=== PATIENT | female | born 1930 | race Asian ===

== ENCOUNTER 2017-02-18 11:32 | Inpatient (IN) | payer MEDICARE, MEDICAID ==
[~2017-02-18] VITALS: Ht 157.5 cm; Wt 59.0 kg
[2017-02-18 13:06] LABS: MEAN CORPUSCULAR HEMOGLOBIN 33.5 PG (27.0-31.0); MEAN CORPUSCULAR VOLUME 105 FL (80-99); MEAN PLATELET VOLUME 4.9 FL (6.5-10.1); PLATELET COUNT 312 K/UL (150-450); RED BLOOD COUNT 3.24 M/UL (4.20-5.40); RED CELL DISTRIBUTION WIDTH 12.1 % (11.6-14.8); WHITE BLOOD COUNT 12.7 K/UL (4.8-10.8)
[2017-02-18] MEDS ORDERED: Bacitracin Oint UD TOPIC ONE (13:15)
[2017-02-18] MEDS ORDERED: Tetanus/Diptheria/Pertussis Vaccine 0.5ml Syr IM ONE (13:15)
[2017-02-18 13:21] LABS: ACETAMINOPHEN < 10 ug/mL (10-30); ALANINE AMINOTRANSFERASE 31 U/L (3-33); ALBUMIN/GLOBULIN RATIO 0.8 (1.0-2.7); ALCOHOL < 10 mg/dL; ANION GAP 11 (5-15); ASPARTATE AMINO TRANSFERASE 39 U/L (5-40); CALCIUM 9.2 mg/dL (8.6-10.2); CARBON DIOXIDE 26 mEQ/L (20-30); CHLORIDE 103 mEQ/L (98-107); CREATININE 0.8 mg/dL (0.5-0.9); HEMOLYSIS 0; POTASSIUM 3.7 mEQ/L (3.4-4.9); SODIUM 140 mEQ/L (135-145); TOTAL PROTEIN 6.9 g/dL (6.6-8.7)
[2017-02-18 13:42] LABS: BAND NEUTROPHILS % (MANUAL) 2 % (0-8); BASOPHILS % (MANUAL) 0 % (0-2); EOSINOPHILS % (MANUAL) 0 % (0-3); LYMPHOCYTES % (MANUAL) 4 % (20-45); NEUTROPHILS % (MANUAL) 89 % (45-75); PLATELET ESTIMATE ADEQUATE; PLATELET MORPHOLOGY NORMAL; TOTAL CELLS COUNTED 100
[2017-02-18 13:45] LABS: HYPOCHROMASIA 1+; MACROCYTES 1+
--- NOTE | 2017-02-18 13:56 | Emergency Room Report ---
History of Present Illness General Chief Complaint: Behavioral Complaint Source: EMS (Adriana Castellano) Present Illness HPI 86-year-old female presents to the emergency department brought by son for rapid worsening of her symptoms of dementia, depression, and fall this a.m. sustaining abrasions of the chin, left elbow, and new onset 8/10 in severity left hip pain status post fall. Son states that intermittently she will have confusion and week that with 2 in the morning however over the course of the last few days she has had multiple episodes of confusion and impression in addition to scratching family members and refusing help. She also has a history of hypertension hyperlipidemia denies fevers or chills. Patient is a poor historian therefore history of present illness and RLS is limited. Son does not believe the patient is on a blood thinning medication. (Adriana Castellano) Allergies: Coded Allergies: No Known Allergies (Unverified , 02/18/17) Patient History Past Medical History: see triage record Past Surgical History: none Pertinent Family History: none Now: No Reviewed Nursing Documentation: PMH: Agreed, PSxH: Agreed (Adriana Castellano) Nursing Documentation-PMH Past Medical History: No History, Except For Hx Hypertension: Yes History Of Psychiatric Problem: Yes (Adriana Castellano) Review of Systems All Other Systems: negative except mentioned in HPI (Adriana Castellano) Physical Exam Vital Signs Date Time Temp Pulse Resp B/P (MAP) Pulse Ox O2 Delivery O2 Flow Rate FiO2 02/18/17 11:21 98.4 82 14 134/78 99 Room Air Sp02 EP Interpretation: reviewed, normal General Appearance: no apparent distress, alert, GCS 15, non-toxic, thin Head: normocephalic, other - abrasion and ttp to the chin Eyes: bilateral eye normal inspection, bilateral eye PERRL, bilateral eye EOMI ENT: hearing grossly normal, normal pharynx, moist mucus membranes, other - superficial abrasion to the upper lip, no lac, no lesions to the buccal/oral mucosa otherwise Neck: full range of motion, supple/symm/no masses Respiratory: chest non-tender, lungs clear, normal breath sounds, speaking full sentences Cardiovascular #1: regular rate, rhythm, no edema, normal capillary refill Gastrointestinal: normal bowel sounds, non tender, soft, no guarding, no rebound Rectal: deferred Genitourinary: normal inspection Musculoskeletal: back normal, normal range of motion, tender - TTP to the lateral left hip, contusion noted, no erythema or increased temperature, no shortening of the affected leg, good distal pulses, no ttp to the left elbow FROM noted Neurologic: alert, oriented x3 - A & O x 2 : person and place- limited exam due to pt. attention span and cooperation, responsive, motor strength/tone normal, sensory intact, speech normal, other - no facial droop Skin: normal color, no rash, warm/dry, well hydrated, other - lateral left hip contusion, abrasions - chin, and left elbow (Adriana Castellano.ATrupti) Medical Decision Making PA Attestation Dr. Sol is my supervising Physician whom patient management has been discussed with. (Adriana Castellano.A.) Medicare Attestation I, Lionel Sol MD hereby attest that this medical record accurately reflects signatures/notations that I made in my capacity as MD when I treated/ diagnosed the above listed Medicare beneficiary. I attest that this information is true, accurate and complete to the best of my knowledge. I understand that any falsification, omission, or concealment of material fact may subject me to administrative, civil, or criminal liability. This patient warrants hospital admission for extreme of age and has a condition that cannot be treated as outpatient. (Lionel Sol M.D.) Diagnostic Impression: Primary Impression: Fracture of left inferior pubic ramus Qualified Codes: S32.592A - Other specified fracture of left pubis, initial encounter for closed fracture Additional Impressions: Fracture of left superior pubic ramus Qualified Codes: S32.512A - Fracture of superior rim of left pubis, initial encounter for closed fracture History of dementia UTI (urinary tract infection) Qualified Codes: N30.01 - Acute cystitis with hematuria Intractable pain ER Course 86-year-old female presents to the emergency department brought by son for rapid worsening of her symptoms of dementia, depression, and fall this a.m. sustaining abrasions of the chin, left elbow, and new onset 8/10 in severity left hip pain status post fall. Son states that intermittently she will have confusion and week that with 2 in the morning however over the course of the last few days she has had multiple episodes of confusion and impression in addition to scratching family members and refusing help. She also has a history of hypertension hyperlipidemia denies fevers or chills. Patient is a poor historian therefore history of present illness and RLS is limited. Son does not believe the patient is on a blood thinning medication. Ddx considered but are not limited to NE, pneumonia, contusion, costochondritis , PE, ACS, Shoulder strain, Chest wall contusion. aortic dissection. Vital signs: are WNL, pt. is afebrile H&PE are most consistent with Fall with acute worsening of dementia symptoms with aggression. ORDERS: -CT Head NO contrast: No evidence of acute fracture, hemorrhage, or intracranial process- chronic atrophy, and old lacunar infarcts Per: Official radiology report - CT Facial Bones No Contrast: no evidence of acute fractures, previous cataract surgery otherwise no acute pathology per official radiology report. - CT Pelvis No Contrast: * Left superior and inferior pubic Rami Fractures per official radiology report. -CBC: elevated WBC's 12.7, and anemia -CMP: WNL - UDS: negative -Salicylates and Acetaminophen: WNL/negative -UA: elevated WBC's , Leukocytes, RBC's, and few bacteria indicating UTI ED INTERVENTIONS: - Tdap vaccination administered - PT. placed on cardiac monitoring. -Tylenol PO -Abrasions are cleaned and bacitracin and sterile dressing is applied. - Keflex PO DISPOSITION: at this time pt. will be admitted to Dr. Carey for UTI, intractable pain. Dr. Carey agreed to admit the pt. and to continue pt. care management. Labs Test 02/18/17 12:50 02/18/17 14:00 White Blood Count 12.7 K/UL (4.8-10.8) Red Blood Count 3.24 M/UL (4.20-5.40) Hemoglobin 10.9 G/DL (12.0-16.0) Hematocrit 33.9 % (37.0-47.0) Mean Corpuscular Volume 105 FL (80-99) Mean Corpuscular Hemoglobin 33.5 PG (27.0-31.0) Mean Corpuscular Hemoglobin Concent 32.0 G/DL (32.0-36.0) Red Cell Distribution Width 12.1 % (11.6-14.8) Platelet Count 312 K/UL (150-450) Mean Platelet Volume 4.9 FL (6.5-10.1) Neutrophils (%) (Auto) % (45.0-75.0) Lymphocytes (%) (Auto) % (20.0-45.0) Monocytes (%) (Auto) % (1.0-10.0) Eosinophils (%) (Auto) % (0.0-3.0) Basophils (%) (Auto) % (0.0-2.0) Differential Total Cells Counted 100 Neutrophils % (Manual) 89 % (45-75) Lymphocytes % (Manual) 4 % (20-45) Monocytes % (Manual) 5 % (1-10) Eosinophils % (Manual) 0 % (0-3) Basophils % (Manual) 0 % (0-2) Band Neutrophils 2 % (0-8) Platelet Estimate Adequate Platelet Morphology Normal Hypochromasia 1+ Macrocytosis 1+ Sodium Level 140 mEQ/L (135-145) Potassium Level 3.7 mEQ/L (3.4-4.9) Chloride Level 103 mEQ/L (98-107) Carbon Dioxide Level 26 mEQ/L (20-30) Anion Gap 11 (5-15) Blood Urea Nitrogen 30 mg/dL (7-23) Creatinine 0.8 mg/dL (0.5-0.9) Estimat Glomerular Filtration Rate mL/min (>60) Glucose Level 85 mg/dL (74-106) Calcium Level 9.2 mg/dL (8.6-10.2) Total Bilirubin 0.4 mg/dL (0.0-1.2) Aspartate Amino Transf (AST/SGOT) 39 U/L (5-40) Alanine Aminotransferase (ALT/SGPT) 31 U/L (3-33) Alkaline Phosphatase 47 U/L (35-104) Total Protein 6.9 g/dL (6.6-8.7) Albumin 3.2 g/dL (3.5-5.2) Globulin 3.7 g/dL Albumin/Globulin Ratio 0.8 (1.0-2.7) Salicylates Level < 1 mg/dL (10-30) Acetaminophen Level < 10 ug/mL (10-30) Serum Alcohol < 10 mg/dL Urine Color Yellow Urine Appearance Clear Urine pH 6.5 (4.5-8.0) Urine Specific [place] 1.015 (1.005-1.035) Urine Protein 2+ (NEGATIVE) Urine Glucose (UA) Negative (NEGATIVE) Urine Ketones Negative (NEGATIVE) Urine Occult Blood Negative (NEGATIVE) Urine Nitrite Negative (NEGATIVE) Urine Bilirubin Negative (NEGATIVE) Urine Urobilinogen Normal MG/DL (0.0-1.0) Urine Leukocyte Esterase 1+ (NEGATIVE) Urine RBC 2-4 /HPF (0 - 2) Urine WBC 5-10 /HPF (0 - 2) Urine Squamous Epithelial Cells Occasional /LPF Urine Bacteria Few /HPF (NONE) Urine Hyaline Casts 2-4 /LPF (NONE) Urine Granular Casts 0-2 /LPF (NONE) Urine Opiates Screen Negative (NEGATIVE) Urine Barbiturates Screen Negative (NEGATIVE) Phencyclidine (PCP) Screen Negative (NEGATIVE) Urine Amphetamines Screen Negative (NEGATIVE) Urine Benzodiazepines Screen Negative (NEGATIVE) Urine Cocaine Screen Negative (NEGATIVE) Urine Marijuana (THC) Screen Negative (NEGATIVE) (Adriana Castellano) Last Vital Signs Date Time Temp Pulse Resp B/P (MAP) Pulse Ox O2 Delivery O2 Flow Rate FiO2 02/18/17 11:21 98.4 82 14 134/78 99 Room Air (Adriana Castellano) Disposition: ADMITTED INPATIENT Condition: Serious Referrals: NOT CHOSEN JAMES/,REFERRING (PCP) Adriana Castellano Feb 18, 2017 13:56 Lionel Sol M.D. Feb 19, 2017 19:02
--- NOTE | 2017-02-18 14:00 | Diagnostic Imaging Report ---
Indications: Altered mental status, trauma Technique: Spiral acquisitions obtained through the brain. Angled axial and coronal 5 x 5 mm slices were reconstructed. Total dose length product 1420 mGycm. CTDI vol(s) 70 mGy. Dose reduction achieved using automated exposure control Comparison: None Findings: There is age-related enlargement of the ventricles and extra-axial CSF spaces. There is periventricular deep white matter chronic ischemic change. There are old bilateral basal ganglia lacunar infarcts. No acute intracranial hemorrhage or edema, mass effect, or midline shift. The calvarium is intact. There is mild bilateral ethmoid sinus mucosal disease. There is evidence of prior left optic globe scleral banding. There is evidence of prior right optic globe cataract surgery. Impression: Chronic and age-related changes. Negative for acute intracranial bleed or mass effect Evidence of prior bilateral ocular surgery Minimal sinus disease The CT scanner at [facility] is accredited by the [employer] and the scans are performed using protocols designed to limit radiation exposure to as low as reasonably achievable to attain images of sufficient resolution adequate for diagnostic evaluation.
--- NOTE | 2017-02-18 14:05 | Diagnostic Imaging Report ---
Indication: PAIN, trauma, left thigh vein Technique: Noncontrast spiral acquisitions obtained through the pelvis. Multiplanar reconstructions generated. Total dose length product 253 mGycm. CTDIvol(s) 9 mGy. Dose reduction achieved using automated exposure control Comparison: None Findings: There is a fracture of the left inferior pubic ramus which is displaced by about one bone width, slightly angulated. There is a comminuted but nondisplaced fracture of the left medial pubic ramus. No femoral fracture demonstrated. No other fracture demonstrated. There are degenerative changes of the lumbosacral junction. No significant soft tissue contusion demonstrated. The bladder is somewhat distended. The distal abdominal the bones appear osteoporotic aorta is somewhat ectatic. Impression: Positive for left inferior and superior pubic rami fractures. No evidence of femoral fracture or other acute bony trauma Osteoporosis The CT scanner at [facility] is accredited by the [employer] and the scans are performed using protocols designed to limit radiation exposure to as low as reasonably achievable to attain images of sufficient resolution adequate for diagnostic evaluation.
--- NOTE | 2017-02-18 14:11 | Diagnostic Imaging Report ---
Indications: Pain, status post fall Technique: Spiral images obtained through the facial bones. No IV contrast utilized. Multiplanar reconstructions were generated.Total dose length product 602 mGycm. CTDIvol(s) 28mGy. Dose reduction achieved using automated exposure control Comparison: None Findings: No acute fractures. No dislocations. There is extensive periosteal thickening of the bilateral maxillary sinuses, as well as mucosal thickening. There is also bilateral ethmoid and frontal sinus disease. There is a large area of osteolysis of the posterior left maxillary alveolar ridge. The optic globes demonstrate a scleral band on the left as well as evidence of cataract surgery bilaterally. 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
[2017-02-18 14:21] LABS: APPEARANCE,URINE CLEAR; KETONES,URINE NEGATIVE (NEGATIVE); LEUKOCYTE ESTERASE ,URINE 1+ (NEGATIVE); NITRITE,URINE NEGATIVE (NEGATIVE); PH,URINE 6.5 (4.5-8.0); PROTEIN,URINE 2+ (NEGATIVE); UROBILINOGEN,URINE NORMAL MG/DL (0.0-1.0)
[2017-02-18] MEDS ORDERED: Acetaminophen 500mg (ES) tab ORAL ONE (14:30)
[2017-02-18 14:45] LABS: BACTERIA,URINE FEW /HPF; GRANULAR CASTS,URINE 0-2 /LPF; SQUAMOUS EPITHELIAL CELL,UR OCCASIONAL /LPF (NONE/OCC)
[2017-02-18 14:48] VITALS: BP 139/70
[2017-02-18] MEDS ORDERED: DONEPEZIL HCL10 M2 ORAL ×2 (14:57→14:59)
[2017-02-18] MEDS ORDERED: TRIAMTERENE-HC1 EAC7 ORAL (14:58)
[2017-02-18] MEDS ORDERED: Zolpidem 5mg tab ORAL PRN (15:00)
[2017-02-18] MEDS ORDERED: Morphine Sulfate 2mg/ml Inj IVP PRN (15:00)
[2017-02-18] MEDS ORDERED: Morphine Sulfate 4mg/ml Inj IVP PRN (15:00)
[2017-02-18] MEDS ORDERED: LORazepam Inj 2mg/ml 1ml IV PRN (15:00)
[2017-02-18] MEDS ORDERED: Miralax 17gm pkt ORAL PRN (15:00)
[2017-02-18] MEDS ORDERED: Mylanta II UD 30ml ORAL PRN (15:00)
[2017-02-18] MEDS ORDERED: FOSAMAX70 MG ORAL (15:01)
[2017-02-18] MEDS ORDERED: Cephalexin 500mg cap ORAL ONE (16:30)
--- NOTE | 2017-02-18 19:14 | History & Physical ---
History and Physical History & Physicial Dictated for Int Med-Dr Carey no. [id number]. KAREN AGEE Feb 18, 2017 19:14
[2017-02-18 19:46] VITALS: BP 128/75
[2017-02-18 20:09] VITALS: BP 128/75
[2017-02-18] MEDS: Heparin 5000 units/ml inj SUBQ SCH (20:12)
--- NOTE | 2017-02-18 22:05 | Consultation ---
History of Present Illness General Chief Complaint: Behavioral Complaint Present Illness Allergies: Coded Allergies: No Known Allergies (Unverified , 02/18/17) Medication History Scheduled Alendronate Sodium* (Fosamax*), 70 MG ORAL EVERY WEEK, (Reported) Donepezil Hcl* (Donepezil Hcl*), 10 MG ORAL DAILY, (Reported) Triamterene/Hydrochlorothiazid (Triamterene-Hctz 37.5-25 Mg Cp), 1 CAP ORAL DAILY, (Reported) Patient History Healthcare decision maker PRACHI PAZ Resuscitation status Full Code Advanced Directive on File No Physical Exam Last 24 Hour Vital Signs Date Time Temp Pulse Resp B/P (MAP) Pulse Ox O2 Delivery O2 Flow Rate FiO2 02/18/17 20:09 97.7 66 20 128/75 98 Room Air 02/18/17 19:46 97.7 66 20 128/75 98 Room Air 02/18/17 16:31 67 15 120/57 100 Room Air 02/18/17 16:16 98.4 02/18/17 14:48 98.4 73 22 139/70 99 Room Air 02/18/17 11:21 98.4 82 14 134/78 99 Room Air Intake and Output 02/18/17 02/19/17 19:00 07:00 Intake Total 8 ml Balance 8 ml Intake Oral 8 ml # Voids 1 Laboratory Tests Test 02/18/17 12:50 02/18/17 14:00 White Blood Count 12.7 K/UL (4.8-10.8) H Red Blood Count 3.24 M/UL (4.20-5.40) L Hemoglobin 10.9 G/DL (12.0-16.0) L Hematocrit 33.9 % (37.0-47.0) L Mean Corpuscular Volume 105 FL (80-99) H Mean Corpuscular Hemoglobin 33.5 PG (27.0-31.0) H Mean Corpuscular Hemoglobin Concent 32.0 G/DL (32.0-36.0) Red Cell Distribution Width 12.1 % (11.6-14.8) Platelet Count 312 K/UL (150-450) Mean Platelet Volume 4.9 FL (6.5-10.1) L Neutrophils (%) (Auto) % (45.0-75.0) Lymphocytes (%) (Auto) % (20.0-45.0) Monocytes (%) (Auto) % (1.0-10.0) Eosinophils (%) (Auto) % (0.0-3.0) Basophils (%) (Auto) % (0.0-2.0) Differential Total Cells Counted 100 Neutrophils % (Manual) 89 % (45-75) H Lymphocytes % (Manual) 4 % (20-45) L Monocytes % (Manual) 5 % (1-10) Eosinophils % (Manual) 0 % (0-3) Basophils % (Manual) 0 % (0-2) Band Neutrophils 2 % (0-8) Platelet Estimate Adequate Platelet Morphology Normal Hypochromasia 1+ Macrocytosis 1+ Sodium Level 140 mEQ/L (135-145) Potassium Level 3.7 mEQ/L (3.4-4.9) Chloride Level 103 mEQ/L (98-107) Carbon Dioxide Level 26 mEQ/L (20-30) Anion Gap 11 (5-15) Blood Urea Nitrogen 30 mg/dL (7-23) H Creatinine 0.8 mg/dL (0.5-0.9) Estimat Glomerular Filtration Rate mL/min (>60) Glucose Level 85 mg/dL (74-106) Calcium Level 9.2 mg/dL (8.6-10.2) Total Bilirubin 0.4 mg/dL (0.0-1.2) Aspartate Amino Transf (AST/SGOT) 39 U/L (5-40) Alanine Aminotransferase (ALT/SGPT) 31 U/L (3-33) Alkaline Phosphatase 47 U/L (35-104) Total Protein 6.9 g/dL (6.6-8.7) Albumin 3.2 g/dL (3.5-5.2) L Globulin 3.7 g/dL Albumin/Globulin Ratio 0.8 (1.0-2.7) L Salicylates Level < 1 mg/dL (10-30) L Acetaminophen Level < 10 ug/mL (10-30) L Serum Alcohol < 10 mg/dL Urine Color Yellow Urine Appearance Clear Urine pH 6.5 (4.5-8.0) Urine Specific [place] 1.015 (1.005-1.035) Urine Protein 2+ (NEGATIVE) H Urine Glucose (UA) Negative (NEGATIVE) Urine Ketones Negative (NEGATIVE) Urine Occult Blood Negative (NEGATIVE) Urine Nitrite Negative (NEGATIVE) Urine Bilirubin Negative (NEGATIVE) Urine Urobilinogen Normal MG/DL (0.0-1.0) Urine Leukocyte Esterase 1+ (NEGATIVE) H Urine RBC 2-4 /HPF (0 - 2) H Urine WBC 5-10 /HPF (0 - 2) H Urine Squamous Epithelial Cells Occasional /LPF Urine Bacteria Few /HPF (NONE) Urine Hyaline Casts 2-4 /LPF (NONE) H Urine Granular Casts 0-2 /LPF (NONE) H Urine Opiates Screen Negative (NEGATIVE) Urine Barbiturates Screen Negative (NEGATIVE) Phencyclidine (PCP) Screen Negative (NEGATIVE) Urine Amphetamines Screen Negative (NEGATIVE) Urine Benzodiazepines Screen Negative (NEGATIVE) Urine Cocaine Screen Negative (NEGATIVE) Urine Marijuana (THC) Screen Negative (NEGATIVE) Height (Feet): 5 Height (Inches): 2.00 Weight (Pounds): 130 Medications Current Medications Medications (Trade) Dose Ordered Sig/Gema Route PRN Reason Start Time Stop Time Status Last Admin Dose Admin Acetaminophen (Tylenol) 650 mg Q4H PRN ORAL fever 02/18/17 15:00 03/20/17 14:59 02/18/17 20:11 Al Hydroxide/Mg Hydroxide (Mylanta II) 30 ml Q6H PRN ORAL dyspepsia 02/18/17 15:00 03/20/17 14:59 Dextrose (Dextrose 50%) STAT PRN IV Hypoglycemia 02/18/17 15:00 03/20/17 14:59 Heparin Sodium (Porcine) (Heparin 5000 units/ml) 5,000 units EVERY 12 HOURS SUBQ 02/18/17 21:00 03/20/17 20:59 02/18/17 20:12 Lorazepam (Ativan 2mg/ml 1ml) 0.5 mg Q4H PRN IV For Anxiety 02/18/17 15:00 02/25/17 14:59 Morphine Sulfate (Morphine Sulfate) 2 mg Q4H PRN IVP For Pain 4-6 02/18/17 15:00 02/25/17 14:59 Morphine Sulfate (Morphine Sulfate) 4 mg Q4H PRN IVP For Pain 7-10 02/18/17 15:00 02/25/17 14:59 Ondansetron HCl (Zofran) 4 mg Q6H PRN IVP Nausea & Vomiting 02/18/17 15:00 03/20/17 14:59 Polyethylene Glycol (Miralax) 17 gm HSPRN PRN ORAL Constipation 02/18/17 15:00 03/20/17 14:59 Zolpidem Tartrate (Ambien) 5 mg HSPRN PRN ORAL Insomnia 02/18/17 15:00 02/25/17 14:59 YAHIR SWAN Feb 18, 2017 22:05
[2017-02-19] VITALS (7 sets, daily range): BP systolic 100–152; BP diastolic 58–88
[2017-02-19 07:37] LABS: BASOPHILS % (AUTO) 0.6 % (0.0-2.0); EOSINOPHILS % (AUTO) 0.3 % (0.0-3.0); LYMPHOCYTES % (AUTO) 12.8 % (20.0-45.0); MEAN CORPUSCULAR HEMOGLOBIN 34.1 PG (27.0-31.0); MEAN CORPUSCULAR HGB CONC 32.5 G/DL (32.0-36.0); MEAN CORPUSCULAR VOLUME 105 FL (80-99); MEAN PLATELET VOLUME 5.1 FL (6.5-10.1); MONOCYTES % (AUTO) 5.4 % (1.0-10.0); NEUTROPHILS % (AUTO) 80.8 % (45.0-75.0); PLATELET COUNT 329 K/UL (150-450); RED BLOOD COUNT 3.24 M/UL (4.20-5.40); RED CELL DISTRIBUTION WIDTH 12.1 % (11.6-14.8); WHITE BLOOD COUNT 7.4 K/UL (4.8-10.8)
--- NOTE | 2017-02-19 07:45 | History and Physical Report ---
DATE OF ADMISSION: 02/18/2017 CHIEF COMPLAINT: The patient is an 86-year-old female, who presents with a chief complaint of increased agitation and confusion. HISTORY OF PRESENT ILLNESS: Much of the History and Physical is obtained from the patient's chart. The patient herself is unable to contribute much to the History and Physical. According to the emergency room note, the patient was brought in by her son for worsening symptoms of Alzheimer's dementia. The patient was increasingly confused. The patient was increasingly agitated and aggressive. The patient apparently sustained a fall earlier today and suffered an abrasion to the chin, left elbow, and left hip pain. The patient presented to [place] emergency room. The patient was found to have fracture of the pelvis. The patient is admitted for increased confusion, agitation, and pelvic fracture. PAST MEDICAL HISTORY: Significant for: 1. Hypertension. 2. Hypercholesterolemia 3. Alzheimer's dementia. 4. Depression. PAST SURGICAL HISTORY: Unknown. CURRENT MEDICATIONS: 1. Fosamax 70 mg one tablet p.o. weekly. 2. Aricept 10 mg one tablet p.o. daily. 3. Triamterene/hydrochlorothiazide 25/37.5 mg one tablet p.o. daily. ALLERGIES: No known drug allergies. SOCIAL HISTORY: The patient is a . The patient lives with her adult son. The patient denies tobacco or alcohol use. REVIEW OF SYSTEMS: Unable to assess secondary to patient's mental status. PHYSICAL EXAMINATION: VITAL SIGNS: Temperature 98.4 degrees, respirations 14, pulse 82, and blood pressure 134/78. GENERAL: The patient is a well-developed and well-nourished female, who is confused and agitated. HEENT: Eyes, pupils equal and responsive to light and accommodation. Extraocular movements are intact. NECK: Supple. No lymphadenopathy. CHEST: Lungs are clear to auscultation bilaterally without wheezes or rales. CARDIOVASCULAR: Regular rate. S1, S2. Normal without murmurs, rubs, or gallops. ABDOMEN: Soft, nontender, and nondistended. Positive bowel sounds. No hepatosplenomegaly. Currently, no rebound or guarding noted. EXTREMITIES: Negative for clubbing, cyanosis, or edema. RECTAL/GENITAL: Refused. NEUROLOGIC: Cranial nerves II through XII are grossly intact without focal deficit. LABORATORY AND DIAGNOSTIC STUDIES: WBC 12.7, hemoglobin 10.9, hematocrit 33.9, and platelets 312,000. Sodium 140, potassium 3.7, chloride 103, CO2 of 26, BUN 30, creatinine 0.8, and glucose 85. Urinalysis showed 2+ protein with 5 to [address] revealed a left inferior and superior pubic rami fracture. The CT of the brain failed to demonstrate intracranial bleed or mass. CT of the facial bones failed to demonstrate acute fracture. ASSESSMENT AND PLAN: This is an 86-year-old female: 1. Increased agitation and confusion. 2. Fracture of the left superior and inferior pubic ramus. 3. Hypertension. 4. Hypercholesterolemia. 5. Alzheimer's dementia. 6. Depression. TREATMENT: 1. Increased aggression and confusion, maybe secondary to exacerbation of Alzheimer's dementia versus acute cerebrovascular accident. A psychiatric consultation has been obtained. 2. Fracture of the left superior and inferior pubic ramus. An Orthopedic consultation has been obtained with Dr. Luis Miguel Rao. 3. Hypertension. Continue triamterene/hydrochlorothiazide as above. 4. Hypercholesteremia. 5. Alzheimer's dementia. Continue Aricept as above. Salvador Watkins M.D. DR: Denisse JOB#: [id number] CC:
[2017-02-19 07:57] LABS: ALANINE AMINOTRANSFERASE 27 U/L (3-33); ALBUMIN/GLOBULIN RATIO 0.8 (1.0-2.7); ANION GAP 10 (5-15); ASPARTATE AMINO TRANSFERASE 36 U/L (5-40); CALCIUM 8.9 mg/dL (8.6-10.2); CARBON DIOXIDE 27 mEQ/L (20-30); CHLORIDE 106 mEQ/L (98-107); CREATININE 0.7 mg/dL (0.5-0.9); HEMOLYSIS 5; SODIUM 143 mEQ/L (135-145); TOTAL PROTEIN 7.1 g/dL (6.6-8.7)
--- NOTE | 2017-02-19 08:28 | Consultation ---
History of Present Illness General Date patient seen: Feb 19, 2017 Chief Complaint: Present Illness Allergies: Coded Allergies: No Known Allergies (Unverified , 02/18/17) Medication History Scheduled Alendronate Sodium* (Fosamax*), 70 MG ORAL EVERY WEEK, (Reported) Donepezil Hcl* (Donepezil Hcl*), 10 MG ORAL DAILY, (Reported) Triamterene/Hydrochlorothiazid (Triamterene-Hctz 37.5-25 Mg Cp), 1 CAP ORAL DAILY, (Reported) Patient History Healthcare decision maker PRACHI PAZ Resuscitation status Full Code Advanced Directive on File No Physical Exam Last 24 Hour Vital Signs Date Time Temp Pulse Resp B/P (MAP) Pulse Ox O2 Delivery O2 Flow Rate FiO2 02/19/17 04:00 97.2 74 20 129/77 99 Room Air 02/19/17 00:00 98.0 70 20 130/76 98 Room Air 02/18/17 20:09 97.7 66 20 128/75 98 Room Air 02/18/17 19:46 97.7 66 20 128/75 98 Room Air 02/18/17 16:31 67 15 120/57 100 Room Air 02/18/17 16:16 98.4 02/18/17 14:48 98.4 73 22 139/70 99 Room Air 02/18/17 11:21 98.4 82 14 134/78 99 Room Air Intake and Output 02/19/17 02/20/17 19:00 07:00 Intake Total 240 ml Balance 240 ml Intake Oral 240 ml Laboratory Tests Test 02/18/17 12:50 02/18/17 14:00 02/19/17 04:50 White Blood Count 12.7 K/UL (4.8-10.8) H 7.4 K/UL (4.8-10.8) Red Blood Count 3.24 M/UL (4.20-5.40) L 3.24 M/UL (4.20-5.40) L Hemoglobin 10.9 G/DL (12.0-16.0) L 11.0 G/DL (12.0-16.0) L Hematocrit 33.9 % (37.0-47.0) L 34.0 % (37.0-47.0) L Mean Corpuscular Volume 105 FL (80-99) H 105 FL (80-99) H Mean Corpuscular Hemoglobin 33.5 PG (27.0-31.0) H 34.1 PG (27.0-31.0) H Mean Corpuscular Hemoglobin Concent 32.0 G/DL (32.0-36.0) 32.5 G/DL (32.0-36.0) Red Cell Distribution Width 12.1 % (11.6-14.8) 12.1 % (11.6-14.8) Platelet Count 312 K/UL (150-450) 329 K/UL (150-450) Mean Platelet Volume 4.9 FL (6.5-10.1) L 5.1 FL (6.5-10.1) L Neutrophils (%) (Auto) % (45.0-75.0) 80.8 % (45.0-75.0) H Lymphocytes (%) (Auto) % (20.0-45.0) 12.8 % (20.0-45.0) L Monocytes (%) (Auto) % (1.0-10.0) 5.4 % (1.0-10.0) Eosinophils (%) (Auto) % (0.0-3.0) 0.3 % (0.0-3.0) Basophils (%) (Auto) % (0.0-2.0) 0.6 % (0.0-2.0) Differential Total Cells Counted 100 Neutrophils % (Manual) 89 % (45-75) H Lymphocytes % (Manual) 4 % (20-45) L Monocytes % (Manual) 5 % (1-10) Eosinophils % (Manual) 0 % (0-3) Basophils % (Manual) 0 % (0-2) Band Neutrophils 2 % (0-8) Platelet Estimate Adequate Platelet Morphology Normal Hypochromasia 1+ Macrocytosis 1+ Sodium Level 140 mEQ/L (135-145) 143 mEQ/L (135-145) Potassium Level 3.7 mEQ/L (3.4-4.9) 4.0 mEQ/L (3.4-4.9) Chloride Level 103 mEQ/L (98-107) 106 mEQ/L (98-107) Carbon Dioxide Level 26 mEQ/L (20-30) 27 mEQ/L (20-30) Anion Gap 11 (5-15) 10 (5-15) Blood Urea Nitrogen 30 mg/dL (7-23) H 24 mg/dL (7-23) H Creatinine 0.8 mg/dL (0.5-0.9) 0.7 mg/dL (0.5-0.9) Estimat Glomerular Filtration Rate mL/min (>60) mL/min (>60) Glucose Level 85 mg/dL (74-106) 77 mg/dL (74-106) Calcium Level 9.2 mg/dL (8.6-10.2) 8.9 mg/dL (8.6-10.2) Total Bilirubin 0.4 mg/dL (0.0-1.2) 0.8 mg/dL (0.0-1.2) Aspartate Amino Transf (AST/SGOT) 39 U/L (5-40) 36 U/L (5-40) Alanine Aminotransferase (ALT/SGPT) 31 U/L (3-33) 27 U/L (3-33) Alkaline Phosphatase 47 U/L (35-104) 48 U/L (35-104) Total Protein 6.9 g/dL (6.6-8.7) 7.1 g/dL (6.6-8.7) Albumin 3.2 g/dL (3.5-5.2) L 3.3 g/dL (3.5-5.2) L Globulin 3.7 g/dL 3.8 g/dL Albumin/Globulin Ratio 0.8 (1.0-2.7) L 0.8 (1.0-2.7) L Salicylates Level < 1 mg/dL (10-30) L Acetaminophen Level < 10 ug/mL (10-30) L Serum Alcohol < 10 mg/dL Urine Color Yellow Urine Appearance Clear Urine pH 6.5 (4.5-8.0) Urine Specific [place] 1.015 (1.005-1.035) Urine Protein 2+ (NEGATIVE) H Urine Glucose (UA) Negative (NEGATIVE) Urine Ketones Negative (NEGATIVE) Urine Occult Blood Negative (NEGATIVE) Urine Nitrite Negative (NEGATIVE) Urine Bilirubin Negative (NEGATIVE) Urine Urobilinogen Normal MG/DL (0.0-1.0) Urine Leukocyte Esterase 1+ (NEGATIVE) H Urine RBC 2-4 /HPF (0 - 2) H Urine WBC 5-10 /HPF (0 - 2) H Urine Squamous Epithelial Cells Occasional /LPF Urine Bacteria Few /HPF (NONE) Urine Hyaline Casts 2-4 /LPF (NONE) H Urine Granular Casts 0-2 /LPF (NONE) H Urine Opiates Screen Negative (NEGATIVE) Urine Barbiturates Screen Negative (NEGATIVE) Phencyclidine (PCP) Screen Negative (NEGATIVE) Urine Amphetamines Screen Negative (NEGATIVE) Urine Benzodiazepines Screen Negative (NEGATIVE) Urine Cocaine Screen Negative (NEGATIVE) Urine Marijuana (THC) Screen Negative (NEGATIVE) Thyroid Stimulating Hormone (TSH) 2.560 uIU/mL (0.300-4.500) Height (Feet): 5 Height (Inches): 2.00 Weight (Pounds): 130 Medications Current Medications Medications (Trade) Dose Ordered Sig/Gema Route PRN Reason Start Time Stop Time Status Last Admin Dose Admin Acetaminophen (Tylenol) 650 mg Q4H PRN ORAL fever 02/18/17 15:00 03/20/17 14:59 02/19/17 04:43 Al Hydroxide/Mg Hydroxide (Mylanta II) 30 ml Q6H PRN ORAL dyspepsia 02/18/17 15:00 03/20/17 14:59 Dextrose (Dextrose 50%) STAT PRN IV Hypoglycemia 02/18/17 15:00 03/20/17 14:59 Heparin Sodium (Porcine) (Heparin 5000 units/ml) 5,000 units EVERY 12 HOURS SUBQ 02/18/17 21:00 03/20/17 20:59 02/18/17 20:12 Lorazepam (Ativan 2mg/ml 1ml) 0.5 mg Q4H PRN IV For Anxiety 02/18/17 15:00 02/25/17 14:59 Morphine Sulfate (Morphine Sulfate) 2 mg Q4H PRN IVP For Pain 4-6 02/18/17 15:00 02/25/17 14:59 02/19/17 07:58 Morphine Sulfate (Morphine Sulfate) 4 mg Q4H PRN IVP For Pain 7-10 02/18/17 15:00 02/25/17 14:59 Ondansetron HCl (Zofran) 4 mg Q6H PRN IVP Nausea & Vomiting 02/18/17 15:00 03/20/17 14:59 Polyethylene Glycol (Miralax) 17 gm HSPRN PRN ORAL Constipation 02/18/17 15:00 03/20/17 14:59 Zolpidem Tartrate (Ambien) 5 mg HSPRN PRN ORAL Insomnia 02/18/17 15:00 02/25/17 14:59 Assessment/Plan Assessment/Plan (1) Left hip pain (2) Left pubic rami fracture (3) Left ankle pain (4) Alzihmers disease seen dictated WILL PFEIFFER Feb 19, 2017 08:28
[2017-02-19] MEDS: Heparin 5000 units/ml inj SUBQ SCH ×2 (09:08→20:55)
[2017-02-19] MEDS ORDERED: traMADol 50mg tab ORAL PRN (10:00)
--- NOTE | 2017-02-19 10:46 | Diagnostic Imaging Report ---
Indication: left ankle pain Comparison: None Findings: 3 views of the left ankle obtained. No fracture or malalignment identified. Bones are osteopenic. There are surgical clips in the posterior part of the ankle. Impression: No acute injury identified
--- NOTE | 2017-02-19 11:44 | Pulmonology Progress Note ---
Assessment/Plan Assessment/Plan ASSESSMENT Fracture of the left superior and inferior pubic ramus. acute encephalopathy on chronic Alzheimer dementia advanced Alzheimer's dementia. Hypertension. Depression PLAN OF CARE MS floor pelvis CT Positive for left inferior and superior pubic rami fractures. No evidence of femoral fracture or other acute bony trauma. Osteoporosis CT head no acute IC pathology CT facial bone - no acute bony fracture pain management bowel regimen PT/OT fall precautions BP stable, no need for anti-HTN meds at this time DVT GI prophayxlis psych eval appreciated patient lacks capacity to make her own decision case discussed and evaluated by supervising physician Subjective Allergies: Coded Allergies: No Known Allergies (Unverified , 02/18/17) Subjective denies chest pain, SOB admits to back and hip pain intermittently controlled with analgesics son at the bedside Objective Last 24 Hour Vital Signs Date Time Temp Pulse Resp B/P (MAP) Pulse Ox O2 Delivery O2 Flow Rate FiO2 02/19/17 08:28 98.1 02/19/17 08:25 98.1 85 20 100/62 98 Room Air 02/19/17 04:00 97.2 74 20 129/77 99 Room Air 02/19/17 00:00 98.0 70 20 130/76 98 Room Air 02/18/17 20:09 97.7 66 20 128/75 98 Room Air 02/18/17 19:46 97.7 66 20 128/75 98 Room Air 02/18/17 16:31 67 15 120/57 100 Room Air 02/18/17 16:16 98.4 02/18/17 14:48 98.4 73 22 139/70 99 Room Air Intake and Output 02/19/17 02/20/17 19:00 07:00 Intake Total 240 ml Balance 240 ml Intake Oral 240 ml General Appearance: no acute distress, cachetic HEENT: normocephalic, atraumatic, anicteric Respiratory/Chest: lungs clear, normal breath sounds, no respiratory distress Cardiovascular: normal rate, regular rhythm Abdomen: normal bowel sounds, soft, non tender Extremities: no edema, pedal pulses normal Neurologic/Psychiatric: alert - confused , responsive Musculoskeletal: atrophy - BLE Laboratory Tests 02/18/17 12:50: White Blood Count 12.7H, Red Blood Count 3.24L, Hemoglobin 10.9L, Hematocrit 33.9L, Mean Corpuscular Volume 105H, Mean Corpuscular Hemoglobin 33.5H, Mean Corpuscular Hemoglobin Concent 32.0, Red Cell Distribution Width 12.1, Platelet Count 312, Mean Platelet Volume 4.9L, Neutrophils (%) (Auto) , Lymphocytes (%) ( Auto) , Monocytes (%) (Auto) , Eosinophils (%) (Auto) , Basophils (%) (Auto) , Differential Total Cells Counted 100, Neutrophils % (Manual) 89H, Lymphocytes % (Manual) 4L, Monocytes % (Manual) 5, Eosinophils % (Manual) 0, Basophils % ( Manual) 0, Band Neutrophils 2, Platelet Estimate Adequate, Platelet Morphology Normal, Hypochromasia 1+, Macrocytosis 1+, Sodium Level 140, Potassium Level 3.7 , Chloride Level 103, Carbon Dioxide Level 26, Anion Gap 11, Blood Urea Nitrogen 30H, Creatinine 0.8, Estimat Glomerular Filtration Rate , Glucose Level 85, Calcium Level 9.2, Total Bilirubin 0.4, Aspartate Amino Transf (AST/ SGOT) 39, Alanine Aminotransferase (ALT/SGPT) 31, Alkaline Phosphatase 47, Total Protein 6.9, Albumin 3.2L, Globulin 3.7, Albumin/Globulin Ratio 0.8L, Salicylates Level < 1L, Acetaminophen Level < 10L, Serum Alcohol < 10 02/18/17 14:00: Urine Color Yellow, Urine Appearance Clear, Urine pH 6.5, Urine Specific [place] 1.015, Urine Protein 2+H, Urine Glucose (UA) Negative, Urine Ketones Negative, Urine Occult Blood Negative, Urine Nitrite Negative, Urine Bilirubin Negative, Urine Urobilinogen Normal, Urine Leukocyte Esterase 1+H, Urine RBC 2- 4H, Urine WBC 5-10H, Urine Squamous Epithelial Cells Occasional, Urine Bacteria Few, Urine Hyaline Casts 2-4H, Urine Granular Casts 0-2H, Urine Opiates Screen Negative, Urine Barbiturates Screen Negative, Phencyclidine (PCP) Screen Negative, Urine Amphetamines Screen Negative, Urine Benzodiazepines Screen Negative, Urine Cocaine Screen Negative, Urine Marijuana (THC) Screen Negative 02/19/17 04:50: White Blood Count 7.4, Red Blood Count 3.24L, Hemoglobin 11.0L, Hematocrit 34.0L , Mean Corpuscular Volume 105H, Mean Corpuscular Hemoglobin 34.1H, Mean Corpuscular Hemoglobin Concent 32.5, Red Cell Distribution Width 12.1, Platelet Count 329, Mean Platelet Volume 5.1L, Neutrophils (%) (Auto) 80.8H, Lymphocytes (%) (Auto) 12.8L, Monocytes (%) (Auto) 5.4, Eosinophils (%) (Auto) 0.3, Basophils (%) (Auto) 0.6, Sodium Level 143, Potassium Level 4.0, Chloride Level 106, Carbon Dioxide Level 27, Anion Gap 10, Blood Urea Nitrogen 24H, Creatinine 0.7, Estimat Glomerular Filtration Rate , Glucose Level 77, Calcium Level 8.9, Total Bilirubin 0.8, Aspartate Amino Transf (AST/SGOT) 36, Alanine Aminotransferase (ALT/SGPT) 27, Alkaline Phosphatase 48, Total Protein 7.1, Albumin 3.3L, Globulin 3.8, Albumin/Globulin Ratio 0.8L, Thyroid Stimulating Hormone (TSH) 2.560 Current Medications Medications (Trade) Dose Ordered Sig/Gema Route PRN Reason Start Time Stop Time Status Last Admin Dose Admin Acetaminophen (Tylenol) 650 mg Q4H PRN ORAL fever 02/18/17 15:00 03/20/17 14:59 02/19/17 04:43 Al Hydroxide/Mg Hydroxide (Mylanta II) 30 ml Q6H PRN ORAL dyspepsia 02/18/17 15:00 03/20/17 14:59 Dextrose (Dextrose 50%) STAT PRN IV Hypoglycemia 02/18/17 15:00 03/20/17 14:59 Heparin Sodium (Porcine) (Heparin 5000 units/ml) 5,000 units EVERY 12 HOURS SUBQ 02/18/17 21:00 03/20/17 20:59 02/19/17 09:08 Lorazepam (Ativan 2mg/ml 1ml) 0.5 mg Q4H PRN IV For Anxiety 02/18/17 15:00 02/25/17 14:59 Morphine Sulfate (Morphine Sulfate) 2 mg Q4H PRN IVP Severe Pain (Pain Scale 7-10) 02/19/17 12:00 02/26/17 11:59 Ondansetron HCl (Zofran) 4 mg Q6H PRN IVP Nausea & Vomiting 02/18/17 15:00 03/20/17 14:59 Polyethylene Glycol (Miralax) 17 gm HSPRN PRN ORAL Constipation 02/18/17 15:00 10/7/17 14:59 Tramadol HCl (Ultram) 50 mg Q4H PRN ORAL Moderate Pain (Pain Scale 4-6) 02/19/17 10:00 02/26/17 09:59 Zolpidem Tartrate (Ambien) 5 mg HSPRN PRN ORAL Insomnia 02/18/17 15:00 02/25/17 14:59 [facility] Lal NP Feb 19, 2017 11:44
--- NOTE | 2017-02-19 14:14 | Consultation ---
History of Present Illness General Chief Complaint: Behavioral Complaint Present Illness HPI 86-year-old female, who presents with a chief complaint of increased agitation and confusion. the pt was a Estonian speaking pt. the pt was calm during the eval. the pt was disorganized and delusional. the pt has impairment of cognition. the pt was unable to understand, appreciate, process and communicate the information given to her. Allergies: Coded Allergies: No Known Allergies (Unverified , 02/18/17) Medication History Scheduled Alendronate Sodium* (Fosamax*), 70 MG ORAL EVERY WEEK, (Reported) Donepezil Hcl* (Donepezil Hcl*), 10 MG ORAL DAILY, (Reported) Triamterene/Hydrochlorothiazid (Triamterene-Hctz 37.5-25 Mg Cp), 1 CAP ORAL DAILY, (Reported) Patient History Limited by: medical condition History Provided By: Patient, Medical Record, PMD Healthcare decision maker PRACHI PAZ Resuscitation status Full Code Advanced Directive on File No Past Medical/Surgical History Past Medical/Surgical History: (1) Intractable pain (2) UTI (urinary tract infection) (3) History of dementia (4) Fracture of left superior pubic ramus (5) Fracture of left inferior pubic ramus Review of Systems Psychiatric: Reports: prior hx, anxiety, depressed feelings, emotional problems , hallucinations Physical Exam General Appearance: no apparent distress, alert, confused, thin Neurologic: alert, responsive, disoriented, depressed affect Last 24 Hour Vital Signs Date Time Temp Pulse Resp B/P (MAP) Pulse Ox O2 Delivery O2 Flow Rate FiO2 02/19/17 12:08 97.9 70 20 152/76 97 Room Air 02/19/17 08:28 98.1 02/19/17 08:25 98.1 85 20 100/62 98 Room Air 02/19/17 04:00 97.2 74 20 129/77 99 Room Air 02/19/17 00:00 98.0 70 20 130/76 98 Room Air 02/18/17 20:09 97.7 66 20 128/75 98 Room Air 02/18/17 19:46 97.7 66 20 128/75 98 Room Air 02/18/17 16:31 67 15 120/57 100 Room Air 02/18/17 16:16 98.4 02/18/17 14:48 98.4 73 22 139/70 99 Room Air Intake and Output 02/19/17 02/20/17 19:00 07:00 Intake Total 480 ml Output Total 600 ml Balance -120 ml Intake Oral 480 ml Output Urine Total 600 ml Laboratory Tests Test 02/19/17 04:50 White Blood Count 7.4 K/UL (4.8-10.8) Red Blood Count 3.24 M/UL (4.20-5.40) L Hemoglobin 11.0 G/DL (12.0-16.0) L Hematocrit 34.0 % (37.0-47.0) L Mean Corpuscular Volume 105 FL (80-99) H Mean Corpuscular Hemoglobin 34.1 PG (27.0-31.0) H Mean Corpuscular Hemoglobin Concent 32.5 G/DL (32.0-36.0) Red Cell Distribution Width 12.1 % (11.6-14.8) Platelet Count 329 K/UL (150-450) Mean Platelet Volume 5.1 FL (6.5-10.1) L Neutrophils (%) (Auto) 80.8 % (45.0-75.0) H Lymphocytes (%) (Auto) 12.8 % (20.0-45.0) L Monocytes (%) (Auto) 5.4 % (1.0-10.0) Eosinophils (%) (Auto) 0.3 % (0.0-3.0) Basophils (%) (Auto) 0.6 % (0.0-2.0) Sodium Level 143 mEQ/L (135-145) Potassium Level 4.0 mEQ/L (3.4-4.9) Chloride Level 106 mEQ/L (98-107) Carbon Dioxide Level 27 mEQ/L (20-30) Anion Gap 10 (5-15) Blood Urea Nitrogen 24 mg/dL (7-23) H Creatinine 0.7 mg/dL (0.5-0.9) Estimat Glomerular Filtration Rate mL/min (>60) Glucose Level 77 mg/dL (74-106) Calcium Level 8.9 mg/dL (8.6-10.2) Total Bilirubin 0.8 mg/dL (0.0-1.2) Aspartate Amino Transf (AST/SGOT) 36 U/L (5-40) Alanine Aminotransferase (ALT/SGPT) 27 U/L (3-33) Alkaline Phosphatase 48 U/L (35-104) Total Protein 7.1 g/dL (6.6-8.7) Albumin 3.3 g/dL (3.5-5.2) L Globulin 3.8 g/dL Albumin/Globulin Ratio 0.8 (1.0-2.7) L Thyroid Stimulating Hormone (TSH) 2.560 uIU/mL (0.300-4.500) Height (Feet): 5 Height (Inches): 2.00 Weight (Pounds): 130 Medications Current Medications Medications (Trade) Dose Ordered Sig/Gema Route PRN Reason Start Time Stop Time Status Last Admin Dose Admin Acetaminophen (Tylenol) 650 mg Q4H PRN ORAL fever 02/18/17 15:00 03/20/17 14:59 02/19/17 04:43 Al Hydroxide/Mg Hydroxide (Mylanta II) 30 ml Q6H PRN ORAL dyspepsia 02/18/17 15:00 03/20/17 14:59 Dextrose (Dextrose 50%) STAT PRN IV Hypoglycemia 02/18/17 15:00 03/20/17 14:59 Heparin Sodium (Porcine) (Heparin 5000 units/ml) 5,000 units EVERY 12 HOURS SUBQ 02/18/17 21:00 03/20/17 20:59 02/19/17 09:08 Lorazepam (Ativan 2mg/ml 1ml) 0.5 mg Q4H PRN IV For Anxiety 02/18/17 15:00 02/25/17 14:59 Morphine Sulfate (Morphine Sulfate) 2 mg Q4H PRN IVP Severe Pain (Pain Scale 7-10) 02/19/17 12:00 02/26/17 11:59 Ondansetron HCl (Zofran) 4 mg Q6H PRN IVP Nausea & Vomiting 02/18/17 15:00 03/20/17 14:59 Polyethylene Glycol (Miralax) 17 gm HSPRN PRN ORAL Constipation 02/18/17 15:00 03/20/17 14:59 Tramadol HCl (Ultram) 50 mg Q4H PRN ORAL Moderate Pain (Pain Scale 4-6) 02/19/17 10:00 02/26/17 09:59 Zolpidem Tartrate (Ambien) 5 mg HSPRN PRN ORAL Insomnia 02/18/17 15:00 02/25/17 14:59 Assessment/Plan Status: stable Assessment/Plan dementia -the pt lacks capacity -low dose seroquel prn for agitation Den Tran M.D. Feb 19, 2017 14:14
--- NOTE | 2017-02-19 16:30 | Consultation ---
DATE OF CONSULTATION: 02/19/2017 CONSULTING PHYSICIAN: Emeterio Ashley M.D. REFERRING PHYSICIAN: Derek Goldman M.D. PHYSICIAN [employer] DIST[employer]BUTOR TENDER: Maia Lee CHIEF COMPLAINT: Left hip pain and left ankle pain. HISTORY OF PRESENT ILLNESS: The patient is an 86-year-old female, who is being seen on the Med/Surg floor of [facility] for initial comprehensive pain management consultation. The patient is Kiswahili and is being translated at this time. The patient also has Alzheimer dementia with minimal confusion and most of the information is being received from the chart. The patient was admitted under the care of Dr. Carey, seen by Dr. Watkins and Dr. Goldman for intractable pain and advanced dementia. The patient was found to have increased confusion and agitation, fell. On pelvic CT found to have a left superior and inferior pubic rami, will be seen by Dr. Rao. At this time, doing physical therapy. She is complaining of left ankle pain as well. Upon admission, the patient was started on morphine 2 to 4 mg every four hours as needed for moderate to severe pain, has used one dose of the morphine 2 mg in the last 24 hours. We were consulted so that the patient will have adequate pain control while here in the hospital. PAST MEDICAL HISTORY: Alzheimer dementia, depression, hypercholesteremia, and hypertension. SOCIAL HISTORY: As per chart. Denies smoking tobacco, drinking alcohol, or IV drug abuse. ALLERGIES: No known drug allergies. MEDICATIONS: Fosamax, Aricept, triamterene/hydrochlorothiazide. REVIEW OF SYSTEM: Complaining of left hip pain and left ankle pain. PHYSICAL EXAMINATION: GENERAL: Alert and awake. VITAL SIGNS: Blood pressure 129/77, heart rate 74, oxygen saturation 99%, respiratory rate 20, and temperature is 98.2 degrees Fahrenheit. Height is 5 feet 2 inches. Weight is 130 pounds. HEENT: PERRLA. NECK: Range of motion is full in all directions. No tenderness to paracervical muscles. No adenopathy. LUNGS: Clear. HEART: S1 and S2 regular. ABDOMEN: Benign. BACK: Range of motion is decreased in flexion and extension. No tenderness to paraspinal muscles, trapezius or rhomboid muscles. EXTREMITIES: Upper extremity range of motion is full in all directions. Motor is intact. No cyanosis. No clubbing. No edema. Sensory is intact. Reflexes are not obtainable. No adenopathy. Lower extremity motion is decreased due to the patient's clinical condition. Motor is intact. No cyanosis. No clubbing. Tenderness to palpation of the left hip area and left ankle area. Sensory is intact. Reflexes are unobtainable. No adenopathy. ASSESSMENT AND PLANS: This is an 86-year-old female with left hip pain, left pubic rami fracture, left ankle pain, and Alzheimer's disease. The patient will be continued on the morphine 2 mg IV every 4 hours as needed for severe pain. We will discontinue morphine 4 mg IV and start the patient on tramadol 50 mg tablet every 4 hours as needed for moderate pain. We will order x-ray of the left ankle to rule out any fracture. The patient was discussed with Dr. Ashley and Dr. Ashley concurred. We will follow up the patient. Thank you very much for the courtesy of this consultation. Emeterio Ashley M.D. PAOLA Lee DR: GREGORIA JOB#: [id number] CC:
--- NOTE | 2017-02-19 18:29 | Internal Med Progress Note ---
Subjective Date of Service: Feb 19, 2017 Physician Name Karen Agee Attending Physician Bronson Carey MD Current Medications Medications (Trade) Dose Ordered Sig/Gema Route PRN Reason Start Time Stop Time Status Last Admin Dose Admin Acetaminophen (Tylenol) 650 mg Q4H PRN ORAL fever 02/18/17 15:00 03/20/17 14:59 02/19/17 04:43 Al Hydroxide/Mg Hydroxide (Mylanta II) 30 ml Q6H PRN ORAL dyspepsia 02/18/17 15:00 03/20/17 14:59 Dextrose (Dextrose 50%) STAT PRN IV Hypoglycemia 02/18/17 15:00 03/20/17 14:59 Heparin Sodium (Porcine) (Heparin 5000 units/ml) 5,000 units EVERY 12 HOURS SUBQ 02/18/17 21:00 03/20/17 20:59 02/19/17 09:08 Lorazepam (Ativan 2mg/ml 1ml) 0.5 mg Q4H PRN IV For Anxiety 02/18/17 15:00 02/25/17 14:59 Morphine Sulfate (Morphine Sulfate) 2 mg Q4H PRN IVP Severe Pain (Pain Scale 7-10) 02/19/17 12:00 02/26/17 11:59 Ondansetron HCl (Zofran) 4 mg Q6H PRN IVP Nausea & Vomiting 02/18/17 15:00 03/20/17 14:59 Polyethylene Glycol (Miralax) 17 gm HSPRN PRN ORAL Constipation 02/18/17 15:00 03/20/17 14:59 Quetiapine Fumarate (SEROquel) 12.5 mg Q6H PRN ORAL agitation 02/19/17 14:15 03/21/17 14:14 Tramadol HCl (Ultram) 50 mg Q4H PRN ORAL Moderate Pain (Pain Scale 4-6) 02/19/17 10:00 02/26/17 09:59 Zolpidem Tartrate (Ambien) 5 mg HSPRN PRN ORAL Insomnia 02/18/17 15:00 02/25/17 14:59 Allergies: Coded Allergies: No Known Allergies (Unverified , 02/18/17) ROS Limited/Unobtainable: No Constitutional: Reports: no symptoms HEENT: Reports: no symptoms Cardiovascular: Reports: no symptoms Respiratory: Reports: no symptoms Gastrointestinal/Abdominal: Reports: no symptoms Genitourinary: Reports: no symptoms Neurologic/Psychiatric: Reports: other - agitation Subjective 86 YO F admitted with fractured pubic ramus and Increased agitation. Cover for Int Med-Dr Carey. Await Ortho consult. Objective Last Vital Signs Date Time Temp Pulse Resp B/P (MAP) Pulse Ox O2 Delivery O2 Flow Rate FiO2 02/19/17 16:09 97.5 65 20 127/75 98 Room Air General Appearance: WD/WN, mild distress, agitated EENT: PERRL/EOMI, normal ENT inspection Neck: non-tender, normal alignment, supple Cardiovascular: normal peripheral pulses, normal rate, regular rhythm, no gallop/murmur, no JVD Respiratory/Chest: chest wall non-tender, lungs clear, normal breath sounds, no respiratory distress, no accessory muscle use Abdomen: normal bowel sounds, non tender, soft, no organomegaly, no mass Extremities: normal range of motion 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0) L Monocytes (%) (Auto) 5.4 % (1.0-10.0) Eosinophils (%) (Auto) 0.3 % (0.0-3.0) Basophils (%) (Auto) 0.6 % (0.0-2.0) Sodium Level 143 mEQ/L (135-145) Potassium Level 4.0 mEQ/L (3.4-4.9) Chloride Level 106 mEQ/L (98-107) Carbon Dioxide Level 27 mEQ/L (20-30) Anion Gap 10 (5-15) Blood Urea Nitrogen 24 mg/dL (7-23) H Creatinine 0.7 mg/dL (0.5-0.9) Estimat Glomerular Filtration Rate mL/min (>60) Glucose Level 77 mg/dL (74-106) Calcium Level 8.9 mg/dL (8.6-10.2) Total Bilirubin 0.8 mg/dL (0.0-1.2) Aspartate Amino Transf (AST/SGOT) 36 U/L (5-40) Alanine Aminotransferase (ALT/SGPT) 27 U/L (3-33) Alkaline Phosphatase 48 U/L (35-104) Total Protein 7.1 g/dL (6.6-8.7) Albumin 3.3 g/dL (3.5-5.2) L Globulin 3.8 g/dL Albumin/Globulin Ratio 0.8 (1.0-2.7) L Thyroid Stimulating Hormone (TSH) 2.560 uIU/mL (0.300-4.500) Intake and Output 02/19/17 02/20/17 19:00 07:00 Intake Total 720 ml Output Total 600 ml Balance 120 ml Intake Oral 720 ml Output Urine Total 600 ml Assessment/Plan Problem List: (1) Agitation Assessment & Plan: See psychiatry note. Cont seroquel. (2) HTN (hypertension) (3) Hypercholesteremia (4) Alzheimer's dementia (5) Depression Assessment & Plan: See psychiatry note. (6) Fracture of left superior pubic ramus Assessment & Plan: await bryce bahena. (7) Fracture of left inferior pubic ramus (8) Intractable pain Assessment & Plan: See pain management note. Cont IV morphine prn Status: not improved KAREN AGEE Feb 19, 2017 18:29
[2017-02-20 04:00] VITALS: BP 151/80
--- NOTE | 2017-02-20 07:25 | Pulmonology Progress Note ---
Assessment/Plan Assessment/Plan ASSESSMENT acute fracture of the left superior and inferior pubic ramus. acute encephalopathy on chronic Alzheimer dementia advanced Alzheimer's dementia. Hypertension. Depression PLAN OF CARE MS floor pelvis CT Positive for left inferior and superior pubic rami fractures. No evidence of femoral fracture or other acute bony trauma. Osteoporosis CT head no acute IC pathology CT facial bone - no acute bony fracture pain management bowel regimen PT/OT fall precautions BP management, start on low dose of YOLANDA and optimize as needed DVT GI prophayxlis psych eval appreciated patient lacks capacity to make her own decision dc plan per PMD case discussed and evaluated by supervising physician Subjective Allergies: Coded Allergies: No Known Allergies (Unverified , 02/18/17) Subjective denies chest pain, SOB still with back and hip pain intermittently controlled with analgesics Objective Last 24 Hour Vital Signs Date Time Temp Pulse Resp B/P (MAP) Pulse Ox O2 Delivery O2 Flow Rate FiO2 02/20/17 04:00 97.3 63 20 151/80 99 Room Air 02/19/17 23:53 97.3 70 20 148/88 99 Room Air 02/19/17 20:29 97.3 63 20 149/58 99 Room Air 02/19/17 16:09 97.5 65 20 127/75 98 Room Air 02/19/17 12:08 97.9 70 20 152/76 97 Room Air 02/19/17 08:28 98.1 02/19/17 08:25 98.1 85 20 100/62 98 Room Air Objective General Appearance: no acute distress, cachetic HEENT: normocephalic, atraumatic, anicteric Respiratory/Chest: lungs clear, normal breath sounds, no respiratory distress Cardiovascular: normal rate, regular rhythm Abdomen: normal bowel sounds, soft, non tender Extremities: no edema, pedal pulses normal Neurologic/Psychiatric: alert but confused , responsive Musculoskeletal: atrophy - BLE Current Medications Medications (Trade) Dose Ordered Sig/Gema Route PRN Reason Start Time Stop Time Status Last Admin Dose Admin Acetaminophen (Tylenol) 650 mg Q4H PRN ORAL fever 02/18/17 15:00 03/20/17 14:59 02/19/17 04:43 Al Hydroxide/Mg Hydroxide (Mylanta II) 30 ml Q6H PRN ORAL dyspepsia 02/18/17 15:00 03/20/17 14:59 Dextrose (Dextrose 50%) STAT PRN IV Hypoglycemia 02/18/17 15:00 03/20/17 14:59 Heparin Sodium (Porcine) (Heparin 5000 units/ml) 5,000 units EVERY 12 HOURS SUBQ 02/18/17 21:00 03/20/17 20:59 02/19/17 20:55 Lorazepam (Ativan 2mg/ml 1ml) 0.5 mg Q4H PRN IV For Anxiety 02/18/17 15:00 02/25/17 14:59 Morphine Sulfate (Morphine Sulfate) 2 mg Q4H PRN IVP Severe Pain (Pain Scale 7-10) 02/19/17 12:00 02/26/17 11:59 Ondansetron HCl (Zofran) 4 mg Q6H PRN IVP Nausea & Vomiting 02/18/17 15:00 03/20/17 14:59 Polyethylene Glycol (Miralax) 17 gm HSPRN PRN ORAL Constipation 02/18/17 15:00 03/20/17 14:59 02/20/17 05:58 Quetiapine Fumarate (SEROquel) 12.5 mg Q6H PRN ORAL agitation 02/19/17 14:15 03/21/17 14:14 Tramadol HCl (Ultram) 50 mg Q4H PRN ORAL Moderate Pain (Pain Scale 4-6) 02/19/17 10:00 02/26/17 09:59 Zolpidem Tartrate (Ambien) 5 mg HSPRN PRN ORAL Insomnia 02/18/17 15:00 02/25/17 14:59 Leyla Lemons NP (Vanchtein) Feb 20, 2017 07:25
[2017-02-20 07:41] LABS: BASOPHILS % (AUTO) 0.6 % (0.0-2.0); EOSINOPHILS % (AUTO) 0.5 % (0.0-3.0); LYMPHOCYTES % (AUTO) 15.4 % (20.0-45.0); MEAN CORPUSCULAR HEMOGLOBIN 36.3 PG (27.0-31.0); MEAN CORPUSCULAR HGB CONC 34.4 G/DL (32.0-36.0); MEAN CORPUSCULAR VOLUME 106 FL (80-99); MONOCYTES % (AUTO) 6.7 % (1.0-10.0); NEUTROPHILS % (AUTO) 76.9 % (45.0-75.0); PLATELET COUNT 326 K/UL (150-450); RED BLOOD COUNT 3.32 M/UL (4.20-5.40); RED CELL DISTRIBUTION WIDTH 12.1 % (11.6-14.8); WHITE BLOOD COUNT 7.6 K/UL (4.8-10.8)
[2017-02-20 07:51] LABS: ANION GAP 10 (5-15); CALCIUM 9.1 mg/dL (8.6-10.2); CARBON DIOXIDE 28 mEQ/L (20-30); CHLORIDE 103 mEQ/L (98-107); CREATININE 0.6 mg/dL (0.5-0.9); HEMOLYSIS 2; POTASSIUM 4.1 mEQ/L (3.4-4.9); SODIUM 141 mEQ/L (135-145)
[2017-02-20 08:00] VITALS: BP 130/78
[2017-02-20] MEDS: Heparin 5000 units/ml inj SUBQ SCH ×2 (09:18→20:58)
[2017-02-20 11:57] VITALS: BP 141/79
[2017-02-20 16:00] VITALS: BP 148/79
--- NOTE | 2017-02-20 17:32 | Internal Med Progress Note ---
Subjective Date of Service: Feb 20, 2017 Physician Name Karen Agee Attending Physician Bronson Carey MD Current Medications Medications (Trade) Dose Ordered Sig/Gema Route PRN Reason Start Time Stop Time Status Last Admin Dose Admin Acetaminophen (Tylenol) 650 mg Q4H PRN ORAL fever 02/18/17 15:00 03/20/17 14:59 02/19/17 04:43 Al Hydroxide/Mg Hydroxide (Mylanta II) 30 ml Q6H PRN ORAL dyspepsia 02/18/17 15:00 03/20/17 14:59 Dextrose (Dextrose 50%) STAT PRN IV Hypoglycemia 02/18/17 15:00 03/20/17 14:59 Heparin Sodium (Porcine) (Heparin 5000 units/ml) 5,000 units EVERY 12 HOURS SUBQ 02/18/17 21:00 03/20/17 20:59 02/20/17 09:18 Lisinopril (Zestril) 10 mg DAILY ORAL 02/21/17 09:00 03/23/17 08:59 Lorazepam (Ativan 2mg/ml 1ml) 0.5 mg Q4H PRN IV For Anxiety 02/18/17 15:00 02/25/17 14:59 Morphine Sulfate (Morphine Sulfate) 2 mg Q4H PRN IVP Severe Pain (Pain Scale 7-10) 02/19/17 12:00 02/26/17 11:59 Ondansetron HCl (Zofran) 4 mg Q6H PRN IVP Nausea & Vomiting 02/18/17 15:00 03/20/17 14:59 Polyethylene Glycol (Miralax) 17 gm HSPRN PRN ORAL Constipation 02/18/17 15:00 03/20/17 14:59 02/20/17 05:58 Quetiapine Fumarate (SEROquel) 12.5 mg Q6H PRN ORAL agitation 02/19/17 14:15 03/21/17 14:14 Tramadol HCl (Ultram) 50 mg Q4H PRN ORAL Moderate Pain (Pain Scale 4-6) 02/19/17 10:00 02/26/17 09:59 Zolpidem Tartrate (Ambien) 5 mg HSPRN PRN ORAL Insomnia 02/18/17 15:00 02/25/17 14:59 Allergies: Coded Allergies: No Known Allergies (Unverified , 02/18/17) ROS Limited/Unobtainable: No Constitutional: Reports: no symptoms HEENT: Reports: no symptoms Cardiovascular: Reports: no symptoms Respiratory: Reports: no symptoms Gastrointestinal/Abdominal: Reports: no symptoms Genitourinary: Reports: no symptoms Subjective 86 YO F admitted with fractured pubic ramus and Increased agitation. Cover for Int Sergio-Dr Carey. Await Ortho consult. Objective Last Vital Signs Date Time Temp Pulse Resp B/P (MAP) Pulse Ox O2 Delivery O2 Flow Rate FiO2 02/20/17 16:00 97.8 69 18 148/79 97 Room Air Laboratory Tests Test 02/20/17 06:00 White Blood Count 7.6 K/UL (4.8-10.8) Red Blood Count 3.32 M/UL (4.20-5.40) L Hemoglobin 12.1 G/DL (12.0-16.0) Hematocrit 35.1 % (37.0-47.0) L Mean Corpuscular Volume 106 FL (80-99) H Mean Corpuscular Hemoglobin 36.3 PG (27.0-31.0) H Mean Corpuscular Hemoglobin Concent 34.4 G/DL (32.0-36.0) Red Cell Distribution Width 12.1 % (11.6-14.8) Platelet Count 326 K/UL (150-450) Mean Platelet Volume 5.0 FL (6.5-10.1) L Neutrophils (%) (Auto) 76.9 % (45.0-75.0) H Lymphocytes (%) (Auto) 15.4 % (20.0-45.0) L Monocytes (%) (Auto) 6.7 % (1.0-10.0) Eosinophils (%) (Auto) 0.5 % (0.0-3.0) Basophils (%) (Auto) 0.6 % (0.0-2.0) Sodium Level 141 mEQ/L (135-145) Potassium Level 4.1 mEQ/L (3.4-4.9) Chloride Level 103 mEQ/L (98-107) Carbon Dioxide Level 28 mEQ/L (20-30) Anion Gap 10 (5-15) Blood Urea Nitrogen 20 mg/dL (7-23) Creatinine 0.6 mg/dL (0.5-0.9) Estimat Glomerular Filtration Rate mL/min (>60) Glucose Level 97 mg/dL (74-106) Calcium Level 9.1 mg/dL (8.6-10.2) Intake and Output 02/20/17 02/21/17 19:00 07:00 Intake Total 480 ml Balance 480 ml Intake Oral 480 ml # Voids 2 Objective General Appearance: WD/WN, mild distress, agitated EENT: PERRL/EOMI, normal ENT inspection Neck: non-tender, normal alignment, supple Cardiovascular: normal peripheral pulses, normal rate, regular rhythm, no gallop/murmur, no JVD Respiratory/Chest: chest wall non-tender, lungs clear, normal breath sounds, no respiratory distress, no accessory muscle use Abdomen: normal bowel sounds, non tender, soft, no organomegaly, no mass Extremities: normal range of motion 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 Cont seroquel. (2) HTN (hypertension) (3) Hypercholesteremia (4) Alzheimer's dementia (5) Depression Assessment & Plan: See psychiatry note. (6) Fracture of left superior pubic ramus Assessment & Plan: Weight bearing as tolerated per orhto. (7) Fracture of left inferior pubic ramus (8) Intractable pain Assessment & Plan: See pain management note. Cont IV morphine prn Status: progressing Assessment/Plan Discharge planning: SNF vs acute rehab KAREN AGEE Feb 20, 2017 17:32
[2017-02-20 20:00] VITALS: BP 126/71
--- NOTE | 2017-02-20 22:30 | Progress Note ---
DATE: 02/20/2017 SUBJECTIVE: The patient is calm. Urdu speaking. No behavior issues. The patient is cooperative, confused, and unable to process the information that was given to her. MENTAL STATUS EXAMINATION: The patient is confused and disoriented. Mood is neutral. Affect is constricted. Congruent mood. Thought process, there is a paucity of thought content. Thought content, no suicidal or homicidal ideation. ASSESSMENT: Depression. PLAN: 1. The patient will be continued on current medication. 2. Provide the patient with supportive therapy and reality orientation. Den Tran M.D. DR: REGAN JOB#: [id number] CC:
[2017-02-21] VITALS (7 sets, daily range): BP systolic 105–144; BP diastolic 57–85
[2017-02-21 07:03] LABS: BASOPHILS % (AUTO) 0.8 % (0.0-2.0); EOSINOPHILS % (AUTO) 0.9 % (0.0-3.0); LYMPHOCYTES % (AUTO) 15.9 % (20.0-45.0); MEAN CORPUSCULAR HEMOGLOBIN 34.6 PG (27.0-31.0); MEAN CORPUSCULAR VOLUME 105 FL (80-99); MEAN PLATELET VOLUME 4.9 FL (6.5-10.1); MONOCYTES % (AUTO) 6.7 % (1.0-10.0); NEUTROPHILS % (AUTO) 75.8 % (45.0-75.0); PLATELET COUNT 304 K/UL (150-450); RED BLOOD COUNT 3.25 M/UL (4.20-5.40); RED CELL DISTRIBUTION WIDTH 12.1 % (11.6-14.8); WHITE BLOOD COUNT 6.8 K/UL (4.8-10.8)
[2017-02-21 07:20] LABS: ANION GAP 11 (5-15); CALCIUM 8.7 mg/dL (8.6-10.2); CARBON DIOXIDE 26 mEQ/L (20-30); CHLORIDE 106 mEQ/L (98-107); CREATININE 0.6 mg/dL (0.5-0.9); HEMOLYSIS 11; POTASSIUM 4.3 mEQ/L (3.4-4.9); SODIUM 143 mEQ/L (135-145)
[2017-02-21] MEDS: Lisinopril 10mg tab ORAL SCH (08:19)
[2017-02-21] MEDS: Heparin 5000 units/ml inj SUBQ SCH ×2 (08:21→21:22)
--- NOTE | 2017-02-21 09:02 | Pulmonology Progress Note ---
Assessment/Plan Assessment/Plan ASSESSMENT acute fracture of the left superior and inferior pubic ramus. acute encephalopathy on chronic Alzheimer dementia advanced Alzheimer's dementia. Hypertension. Depression PLAN OF CARE MS floor pelvis CT Positive for left inferior and superior pubic rami fractures. No evidence of femoral fracture or other acute bony trauma. Osteoporosis CT head no acute IC pathology CT facial bone - no acute bony fracture pain management , better controlled now bowel regimen PT/OT fall precautions BP management, start on low dose of YOLANDA and optimize as needed DVT GI prophayxlis psych eval appreciated patient lacks capacity to make her own decision dc plan today per PMD case discussed and evaluated by supervising physician Subjective Allergies: Coded Allergies: No Known Allergies (Unverified , 02/18/17) Subjective denies chest pain, SOB pain better controlled, more comfortable Objective Last 24 Hour Vital Signs Date Time Temp Pulse Resp B/P (MAP) Pulse Ox O2 Delivery O2 Flow Rate FiO2 02/21/17 08:19 120/66 02/21/17 08:03 97.0 83 18 120/66 91 Room Air 02/21/17 04:01 97.7 65 16 144/73 97 Room Air 02/21/17 00:00 97.0 74 16 141/85 95 Room Air 02/20/17 20:00 97.2 71 18 126/71 99 Room Air 02/20/17 16:00 97.8 69 18 148/79 97 Room Air 02/20/17 11:57 97.3 72 18 141/79 98 Room Air Intake and Output 02/21/17 02/22/17 19:00 07:00 Intake Total 240 ml Balance 240 ml Intake Oral 240 ml Objective General Appearance: no acute distress, cachetic HEENT: normocephalic, atraumatic, anicteric Respiratory/Chest: lungs clear, normal breath sounds, no respiratory distress Cardiovascular: normal rate, regular rhythm Abdomen: normal bowel sounds, soft, non tender Extremities: no edema, pedal pulses normal Neurologic/Psychiatric: alert but confused , responsive Musculoskeletal: atrophy - BLE Laboratory Tests 02/21/17 04:40: White Blood Count 6.8, Red Blood Count 3.25L, Hemoglobin 11.3L, Hematocrit 34.1L , Mean Corpuscular Volume 105H, Mean Corpuscular Hemoglobin 34.6H, Mean Corpuscular Hemoglobin Concent 33.0, Red Cell Distribution Width 12.1, Platelet Count 304, Mean Platelet Volume 4.9L, Neutrophils (%) (Auto) 75.8H, Lymphocytes (%) (Auto) 15.9L, Monocytes (%) (Auto) 6.7, Eosinophils (%) (Auto) 0.9, Basophils (%) (Auto) 0.8, Sodium Level 143, Potassium Level 4.3, Chloride Level 106, Carbon Dioxide Level 26, Anion Gap 11, Blood Urea Nitrogen 12, Creatinine 0.6, Estimat Glomerular Filtration Rate , Glucose Level 95, Calcium Level 8.7 Current Medications Medications (Trade) Dose Ordered Sig/Gema Route PRN Reason Start Time Stop Time Status Last Admin Dose Admin Acetaminophen (Tylenol) 650 mg Q4H PRN ORAL fever 02/18/17 15:00 03/20/17 14:59 02/19/17 04:43 Al Hydroxide/Mg Hydroxide (Mylanta II) 30 ml Q6H PRN ORAL dyspepsia 02/18/17 15:00 03/20/17 14:59 Dextrose (Dextrose 50%) STAT PRN IV Hypoglycemia 02/18/17 15:00 03/20/17 14:59 Heparin Sodium (Porcine) (Heparin 5000 units/ml) 5,000 units EVERY 12 HOURS SUBQ 02/18/17 21:00 03/20/17 20:59 02/21/17 08:21 Lisinopril (Zestril) 10 mg DAILY ORAL 02/21/17 09:00 03/23/17 08:59 02/21/17 08:19 Lorazepam (Ativan 2mg/ml 1ml) 0.5 mg Q4H PRN IV For Anxiety 02/18/17 15:00 02/25/17 14:59 Morphine Sulfate (Morphine Sulfate) 2 mg Q4H PRN IVP Severe Pain (Pain Scale 7-10) 02/19/17 12:00 02/26/17 11:59 Ondansetron HCl (Zofran) 4 mg Q6H PRN IVP Nausea & Vomiting 02/18/17 15:00 03/20/17 14:59 Polyethylene Glycol (Miralax) 17 gm HSPRN PRN ORAL Constipation 02/18/17 15:00 03/20/17 14:59 02/20/17 05:58 Quetiapine Fumarate (SEROquel) 12.5 mg Q6H PRN ORAL agitation 02/19/17 14:15 03/21/17 14:14 Tramadol HCl (Ultram) 50 mg Q4H PRN ORAL Moderate Pain (Pain Scale 4-6) 02/19/17 10:00 02/26/17 09:59 Zolpidem Tartrate (Ambien) 5 mg HSPRN PRN ORAL Insomnia 02/18/17 15:00 02/25/17 14:59 Cristo GarciaLeyla ash NP Feb 21, 2017 09:02
--- NOTE | 2017-02-21 12:15 | General Progress Note ---
Assessment/Plan Assessment/Plan (1) Left hip pain (2) Left pubic rami fracture (3) Left ankle pain (4) Alzihmers disease Pt to be continued on Morphine and Tramadol as needed. D/w Dr. Ashley and he concurred. Subjective Date patient seen: Feb 21, 2017 Time patient seen: 11:30 - am Allergies: Coded Allergies: No Known Allergies (Unverified , 02/18/17) Subjective REVIEW OF SYSTEM: Complaining of left hip pain and left ankle pain. SUBJECTIVE: Patient is in bed no signs of pain or distress. Xray of ankle was reviewed. She has not requested the morphine or Tramadol. Objective Last 24 Hour Vital Signs Date Time Temp Pulse Resp B/P (MAP) Pulse Ox O2 Delivery O2 Flow Rate FiO2 02/21/17 11:52 96.8 78 18 142/81 97 Room Air 02/21/17 08:19 120/66 02/21/17 08:03 97.0 83 18 120/66 91 Room Air 02/21/17 04:01 97.7 65 16 144/73 97 Room Air 02/21/17 00:00 97.0 74 16 141/85 95 Room Air 02/20/17 20:00 97.2 71 18 126/71 99 Room Air 02/20/17 16:00 97.8 69 18 148/79 97 Room Air Intake and Output 02/21/17 02/22/17 19:00 07:00 Intake Total 240 ml Balance 240 ml Intake Oral 240 ml Laboratory Tests 02/21/17 04:40: White Blood Count 6.8, Red Blood Count 3.25L, Hemoglobin 11.3L, Hematocrit 34.1L , Mean Corpuscular Volume 105H, Mean Corpuscular Hemoglobin 34.6H, Mean Corpuscular Hemoglobin Concent 33.0, Red Cell Distribution Width 12.1, Platelet Count 304, Mean Platelet Volume 4.9L, Neutrophils (%) (Auto) 75.8H, Lymphocytes (%) (Auto) 15.9L, Monocytes (%) (Auto) 6.7, Eosinophils (%) (Auto) 0.9, Basophils (%) (Auto) 0.8, Sodium Level 143, Potassium Level 4.3, Chloride Level 106, Carbon Dioxide Level 26, Anion Gap 11, Blood Urea Nitrogen 12, Creatinine 0.6, Estimat Glomerular Filtration Rate , Glucose Level 95, Calcium Level 8.7 Height (Feet): 5 Height (Inches): 2.00 Weight (Pounds): 130 Objective PHYSICAL EXAMINATION: GENERAL: Alert and awake. HEENT: PERRLA. NECK: Range of motion is full in all directions. No tenderness to paracervical muscles. No adenopathy. LUNGS: Clear. HEART: S1 and S2 regular. ABDOMEN: Benign. BACK: Range of motion is decreased in flexion and extension. No tenderness to paraspinal muscles, trapezius or rhomboid muscles. EXTREMITIES: No cyanosis. No clubbing. Procedure: XRAY Ankle Compl Min 3v L Impression: No acute injury identified WILL PFEIFFER Feb 21, 2017 12:15
--- NOTE | 2017-02-21 17:41 | Internal Med Progress Note ---
Subjective Date of Service: Feb 21, 2017 Physician Name Salvador Agee Attending Physician Bronson Carey MD Current Medications Medications (Trade) Dose Ordered Sig/Gema Route PRN Reason Start Time Stop Time Status Last Admin Dose Admin Acetaminophen (Tylenol) 650 mg Q4H PRN ORAL fever 02/18/17 15:00 03/20/17 14:59 02/19/17 04:43 Al Hydroxide/Mg Hydroxide (Mylanta II) 30 ml Q6H PRN ORAL dyspepsia 02/18/17 15:00 03/20/17 14:59 Dextrose (Dextrose 50%) STAT PRN IV Hypoglycemia 02/18/17 15:00 03/20/17 14:59 Heparin Sodium (Porcine) (Heparin 5000 units/ml) 5,000 units EVERY 12 HOURS SUBQ 02/18/17 21:00 03/20/17 20:59 02/21/17 08:21 Lisinopril (Zestril) 10 mg DAILY ORAL 02/21/17 09:00 03/23/17 08:59 02/21/17 08:19 Lorazepam (Ativan 2mg/ml 1ml) 0.5 mg Q4H PRN IV For Anxiety 02/18/17 15:00 02/25/17 14:59 Morphine Sulfate (Morphine Sulfate) 2 mg Q4H PRN IVP Severe Pain (Pain Scale 7-10) 02/19/17 12:00 02/26/17 11:59 Ondansetron HCl (Zofran) 4 mg Q6H PRN IVP Nausea & Vomiting 02/18/17 15:00 03/20/17 14:59 Polyethylene Glycol (Miralax) 17 gm HSPRN PRN ORAL Constipation 02/18/17 15:00 03/20/17 14:59 02/20/17 05:58 Quetiapine Fumarate (SEROquel) 12.5 mg Q6H PRN ORAL agitation 02/19/17 14:15 03/21/17 14:14 Tramadol HCl (Ultram) 50 mg Q4H PRN ORAL Moderate Pain (Pain Scale 4-6) 02/19/17 10:00 02/26/17 09:59 Zolpidem Tartrate (Ambien) 5 mg HSPRN PRN ORAL Insomnia 02/18/17 15:00 02/25/17 14:59 Allergies: Coded Allergies: No Known Allergies (Unverified , 02/18/17) ROS Limited/Unobtainable: No Constitutional: Reports: no symptoms HEENT: Reports: no symptoms Cardiovascular: Reports: no symptoms Respiratory: Reports: no symptoms Gastrointestinal/Abdominal: Reports: no symptoms Genitourinary: Reports: no symptoms Neurologic/Psychiatric: Reports: no symptoms Subjective 86 YO F admitted with fractured pubic ramus and Increased agitation. Cover for Int Med-Dr Carey. Objective Last Vital Signs Date Time Temp Pulse Resp B/P (MAP) Pulse Ox O2 Delivery O2 Flow Rate FiO2 02/21/17 15:49 97.5 72 18 128/76 98 Room Air Laboratory Tests Test 02/21/17 04:40 White Blood Count 6.8 K/UL (4.8-10.8) Red Blood Count 3.25 M/UL (4.20-5.40) L Hemoglobin 11.3 G/DL (12.0-16.0) L Hematocrit 34.1 % (37.0-47.0) L Mean Corpuscular Volume 105 FL (80-99) H Mean Corpuscular Hemoglobin 34.6 PG (27.0-31.0) H Mean Corpuscular Hemoglobin Concent 33.0 G/DL (32.0-36.0) Red Cell Distribution Width 12.1 % (11.6-14.8) Platelet Count 304 K/UL (150-450) Mean Platelet Volume 4.9 FL (6.5-10.1) L Neutrophils (%) (Auto) 75.8 % (45.0-75.0) H Lymphocytes (%) (Auto) 15.9 % (20.0-45.0) L Monocytes (%) (Auto) 6.7 % (1.0-10.0) Eosinophils (%) (Auto) 0.9 % (0.0-3.0) Basophils (%) (Auto) 0.8 % (0.0-2.0) Sodium Level 143 mEQ/L (135-145) Potassium Level 4.3 mEQ/L (3.4-4.9) Chloride Level 106 mEQ/L (98-107) Carbon Dioxide Level 26 mEQ/L (20-30) Anion Gap 11 (5-15) Blood Urea Nitrogen 12 mg/dL (7-23) Creatinine 0.6 mg/dL (0.5-0.9) Estimat Glomerular Filtration Rate mL/min (>60) Glucose Level 95 mg/dL (74-106) Calcium Level 8.7 mg/dL (8.6-10.2) Intake and Output 02/21/17 02/22/17 19:00 07:00 Intake Total 480 ml Balance 480 ml Intake Oral 480 ml # Voids 2 Objective General Appearance: WD/WN, mild distress, agitated EENT: PERRL/EOMI, normal ENT inspection Neck: non-tender, normal alignment, supple Cardiovascular: normal peripheral pulses, normal rate, regular rhythm, no gallop/murmur, no JVD Respiratory/Chest: chest wall non-tender, lungs clear, normal breath sounds, no respiratory distress, no accessory muscle use Abdomen: normal bowel sounds, non tender, soft, no organomegaly, no mass Extremities: normal range of motion 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 Cont seroquel. (2) HTN (hypertension) (3) Hypercholesteremia (4) Alzheimer's dementia (5) Depression Assessment & Plan: See psychiatry note. (6) Fracture of left superior pubic ramus Assessment & Plan: Weight bearing as tolerated per orhto. (7) Fracture of left inferior pubic ramus (8) Intractable pain Assessment & Plan: See pain management note. Cont IV morphine prn Assessment/Plan Discharge planning: SNF vs acute rehab SALVADOR AGEE Feb 21, 2017 17:41
[2017-02-21] MEDS: Morphine Sulfate 2mg/ml Inj IVP PRN (21:34)
--- NOTE | 2017-02-21 22:29 | General Progress Note ---
Assessment/Plan Status: stable, progressing Subjective Constitutional: Reports: malaise, weakness Neurologic/Psychiatric: Reports: anxiety, depressed, emotional problems Allergies: Coded Allergies: No Known Allergies (Unverified , 02/18/17) Objective Last 24 Hour Vital Signs Date Time Temp Pulse Resp B/P (MAP) Pulse Ox O2 Delivery O2 Flow Rate FiO2 02/21/17 20:45 97.3 88 20 113/57 95 Room Air 02/21/17 20:00 97.7 72 20 105/66 99 Room Air 02/21/17 15:49 97.5 72 18 128/76 98 Room Air 02/21/17 11:52 96.8 78 18 142/81 97 Room Air 02/21/17 08:19 120/66 02/21/17 08:03 97.0 83 18 120/66 91 Room Air 02/21/17 04:01 97.7 65 16 144/73 97 Room Air 02/21/17 00:00 97.0 74 16 141/85 95 Room Air Intake and Output 02/21/17 02/22/17 19:00 07:00 Intake Total 480 ml Balance 480 ml Intake Oral 480 ml # Voids 2 Laboratory Tests 02/21/17 04:40: White Blood Count 6.8, Red Blood Count 3.25L, Hemoglobin 11.3L, Hematocrit 34.1L , Mean Corpuscular Volume 105H, Mean Corpuscular Hemoglobin 34.6H, Mean Corpuscular Hemoglobin Concent 33.0, Red Cell Distribution Width 12.1, Platelet Count 304, Mean Platelet Volume 4.9L, Neutrophils (%) (Auto) 75.8H, Lymphocytes (%) (Auto) 15.9L, Monocytes (%) (Auto) 6.7, Eosinophils (%) (Auto) 0.9, Basophils (%) (Auto) 0.8, Sodium Level 143, Potassium Level 4.3, Chloride Level 106, Carbon Dioxide Level 26, Anion Gap 11, Blood Urea Nitrogen 12, Creatinine 0.6, Estimat Glomerular Filtration Rate , Glucose Level 95, Calcium Level 8.7 Height (Feet): 5 Height (Inches): 2.00 Weight (Pounds): 130 General Appearance: no apparent distress, alert, confused Neurologic: alert, responsive, disoriented, depressed affect Den Tran M.D. Feb 21, 2017 22:29
[2017-02-22] VITALS: BP 132/74
[2017-02-22 04:00] VITALS: BP 142/75
[2017-02-22 07:31] LABS: BASOPHILS % (AUTO) 0.6 % (0.0-2.0); EOSINOPHILS % (AUTO) 1.3 % (0.0-3.0); LYMPHOCYTES % (AUTO) 18.7 % (20.0-45.0); MEAN CORPUSCULAR HEMOGLOBIN 35.3 PG (27.0-31.0); MEAN CORPUSCULAR HGB CONC 33.6 G/DL (32.0-36.0); MEAN CORPUSCULAR VOLUME 105 FL (80-99); MEAN PLATELET VOLUME 5.1 FL (6.5-10.1); MONOCYTES % (AUTO) 6.6 % (1.0-10.0); NEUTROPHILS % (AUTO) 72.9 % (45.0-75.0); PLATELET COUNT 330 K/UL (150-450); RED BLOOD COUNT 3.12 M/UL (4.20-5.40); RED CELL DISTRIBUTION WIDTH 12.1 % (11.6-14.8); WHITE BLOOD COUNT 6.7 K/UL (4.8-10.8)
[2017-02-22 07:54] LABS: ANION GAP 8 (5-15); CALCIUM 8.7 mg/dL (8.6-10.2); CARBON DIOXIDE 28 mEQ/L (20-30); CHLORIDE 104 mEQ/L (98-107); CREATININE 0.6 mg/dL (0.5-0.9); HEMOLYSIS 31; POTASSIUM 4.4 mEQ/L (3.4-4.9); SODIUM 140 mEQ/L (135-145)
[2017-02-22 08:00] VITALS: BP 134/77
--- NOTE | 2017-02-22 08:15 | General Progress Note ---
Assessment/Plan Assessment/Plan (1) Left hip pain (2) Left pubic rami fracture (3) Left ankle pain (4) Alzihmers disease Pt to be continued on Morphine and Tramadol as needed. D/w Dr. Ashley and he concurred. Subjective Date patient seen: Feb 22, 2017 Time patient seen: 07:15 - am Allergies: Coded Allergies: No Known Allergies (Unverified , 02/18/17) Subjective REVIEW OF SYSTEM: Complaining of left hip pain and left ankle pain. SUBJECTIVE: Pt is comfortable and in no signs of distress or pain. She is laying in bed. Objective Last 24 Hour Vital Signs Date Time Temp Pulse Resp B/P (MAP) Pulse Ox O2 Delivery O2 Flow Rate FiO2 02/22/17 04:00 97.8 79 18 142/75 97 Room Air 02/22/17 00:00 97.1 72 20 132/74 99 Room Air 02/21/17 22:04 97.3 02/21/17 20:00 97.7 72 20 105/66 99 Room Air 02/21/17 15:49 97.5 72 18 128/76 98 Room Air 02/21/17 11:52 96.8 78 18 142/81 97 Room Air 02/21/17 08:19 120/66 Laboratory Tests 02/22/17 05:25: White Blood Count 6.7, Red Blood Count 3.12L, Hemoglobin 11.0L, Hematocrit 32.8L , Mean Corpuscular Volume 105H, Mean Corpuscular Hemoglobin 35.3H, Mean Corpuscular Hemoglobin Concent 33.6, Red Cell Distribution Width 12.1, Platelet Count 330, Mean Platelet Volume 5.1L, Neutrophils (%) (Auto) 72.9, Lymphocytes ( %) (Auto) 18.7L, Monocytes (%) (Auto) 6.6, Eosinophils (%) (Auto) 1.3, Basophils (%) (Auto) 0.6, Sodium Level 140, Potassium Level 4.4, Chloride Level 104, Carbon Dioxide Level 28, Anion Gap 8, Blood Urea Nitrogen 14, Creatinine 0.6, Estimat Glomerular Filtration Rate , Glucose Level 84, Calcium Level 8.7 Height (Feet): 5 Height (Inches): 2.00 Weight (Pounds): 130 Objective PHYSICAL EXAMINATION: GENERAL: Alert and awake. HEENT: PERRLA. NECK: Range of motion is full in all directions. No tenderness to paracervical muscles. No adenopathy. LUNGS: Clear. HEART: S1 and S2 regular. ABDOMEN: Benign. BACK: Range of motion is decreased in flexion and extension. No tenderness to paraspinal muscles, trapezius or rhomboid muscles. EXTREMITIES: No cyanosis. No clubbing. Procedure: XRAY Ankle Compl Min 3v L Impression: No acute injury identified WILL PFEIFFER Feb 22, 2017 08:15
[2017-02-22] MEDS: Heparin 5000 units/ml inj SUBQ SCH ×2 (08:28→21:18)
[2017-02-22] MEDS: Lisinopril 10mg tab ORAL SCH (08:28)
--- NOTE | 2017-02-22 09:30 | Consultation ---
DATE OF CONSULTATION: 02/19/2017 CHIEF COMPLAINT: Left hip pain. HISTORY OF PRESENT ILLNESS: The patient is an 86-year-old female, who sustained, I believe, a fall. She has severe pain in the left hip. Imaging studies showed a pelvis fracture, and therefore, Orthopedic consultation was obtained for further care and recommendation. PAST MEDICAL HISTORY: Dementia. Past Surgical History: reviewed from the intake chart. PHYSICAL EXAMINATION: GENERAL: The patient is alert and oriented. She is resting comfortably in bed. Extremities: She has pain with palpation of the left pubic rami. Left ankle examination shows pain along lateral joint No ecchymosis. No swelling. Posterior calf is soft. DIAGNOSTIC DATA: Three views of left ankle reviewed and showed no fracture, dislocation, or soft tissue abnormalities. CT scan of the pelvis shows what appears to be a pubic rami fracture on the left. ASSESSMENT: Left superior and inferior pubic rami fracture with sacral impaction (lateral compression grade 2 pelvic ring injury). DISCUSSION: At this point what she can do is begin physical therapy. She will be weightbearing as tolerated. I left a message for her son, Benjie, that this is a nonoperative fracture, it should heal, it takes 6 to 12 weeks for it to heal. She is given appropriate pain medication, however, given her dementia and her age, we do not want to overmedicate her. I consider her as outpatient if she has continued issues. Luis Miguel Rao M.D. DR: ERICA JOB#: [id number] CC: WAN
--- NOTE | 2017-02-22 09:30 | Progress Note ---
DATE: 02/19/2017 SUBJECTIVE: The patient had no issues overnight. She is resting comfortably in bed. She is tolerating p.o. OBJECTIVE: GENERAL: On examination, the patient is alert. She is resting in bed. VITAL SIGNS: Afebrile. Stable vital signs. EXTREMITIES: Left hip examination shows pain with internal and external rotation with pain in the pubic rami as well as along the posterior SI joint. ASSESSMENT AND PLAN: Left lateral compression pelvic ring fracture. At this point, left a message with the son again to try to contact him to let him know that she did break her pelvis. This is nonoperative. It should heal in 6 to 12 weeks. At this point, we are going to get her home physical therapy. Weightbearing as tolerated. Work on discharge planning. Luis Miguel Rao M.D. DR: Alistair JOB#: [id number] CC: WAN
[2017-02-22] MEDS: Morphine Sulfate 2mg/ml Inj IVP PRN (11:20)
[2017-02-22 11:52] VITALS: BP 134/74
--- NOTE | 2017-02-22 14:46 | General Progress Note ---
Assessment/Plan Status: doing well, stable, progressing Assessment/Plan the pt lacks capacity to make decisions Subjective Neurologic/Psychiatric: Reports: no symptoms, anxiety Allergies: Coded Allergies: No Known Allergies (Unverified , 02/18/17) Objective Last 24 Hour Vital Signs Date Time Temp Pulse Resp B/P (MAP) Pulse Ox O2 Delivery O2 Flow Rate FiO2 02/22/17 11:52 96.4 72 18 134/74 98 Room Air 02/22/17 08:28 134/77 02/22/17 08:00 97.3 77 18 134/77 97 Room Air 02/22/17 04:00 97.8 79 18 142/75 97 Room Air 02/22/17 00:00 97.1 72 20 132/74 99 Room Air 02/21/17 22:04 97.3 02/21/17 20:00 97.7 72 20 105/66 99 Room Air 02/21/17 15:49 97.5 72 18 128/76 98 Room Air Intake and Output 02/22/17 02/23/17 19:00 07:00 Intake Total 120 ml Balance 120 ml Intake Oral 120 ml # Voids 1 Laboratory Tests 02/22/17 05:25: White Blood Count 6.7, Red Blood Count 3.12L, Hemoglobin 11.0L, Hematocrit 32.8L , Mean Corpuscular Volume 105H, Mean Corpuscular Hemoglobin 35.3H, Mean Corpuscular Hemoglobin Concent 33.6, Red Cell Distribution Width 12.1, Platelet Count 330, Mean Platelet Volume 5.1L, Neutrophils (%) (Auto) 72.9, Lymphocytes ( %) (Auto) 18.7L, Monocytes (%) (Auto) 6.6, Eosinophils (%) (Auto) 1.3, Basophils (%) (Auto) 0.6, Sodium Level 140, Potassium Level 4.4, Chloride Level 104, Carbon Dioxide Level 28, Anion Gap 8, Blood Urea Nitrogen 14, Creatinine 0.6, Estimat Glomerular Filtration Rate , Glucose Level 84, Calcium Level 8.7 Height (Feet): 5 Height (Inches): 2.00 Weight (Pounds): 130 General Appearance: no apparent distress, alert, confused, thin Neurologic: alert, oriented x 3, responsive, depressed affect Den Tran M.D. Feb 22, 2017 14:46
[2017-02-22 16:13] VITALS: BP 122/73
--- NOTE | 2017-02-22 19:22 | Internal Med Progress Note ---
Subjective Date of Service: Feb 22, 2017 Physician Name Salvador Agee Attending Physician Bronson Carey MD Current Medications Medications (Trade) Dose Ordered Sig/Gema Route PRN Reason Start Time Stop Time Status Last Admin Dose Admin Acetaminophen (Tylenol) 650 mg Q4H PRN ORAL fever 02/18/17 15:00 03/20/17 14:59 02/19/17 04:43 Al Hydroxide/Mg Hydroxide (Mylanta II) 30 ml Q6H PRN ORAL dyspepsia 02/18/17 15:00 03/20/17 14:59 Dextrose (Dextrose 50%) STAT PRN IV Hypoglycemia 02/18/17 15:00 03/20/17 14:59 Heparin Sodium (Porcine) (Heparin 5000 units/ml) 5,000 units EVERY 12 HOURS SUBQ 02/18/17 21:00 03/20/17 20:59 02/22/17 08:28 Lisinopril (Zestril) 10 mg DAILY ORAL 02/21/17 09:00 03/23/17 08:59 02/22/17 08:28 Lorazepam (Ativan 2mg/ml 1ml) 0.5 mg Q4H PRN IV For Anxiety 02/18/17 15:00 02/25/17 14:59 Morphine Sulfate (Morphine Sulfate) 2 mg Q4H PRN IVP Severe Pain (Pain Scale 7-10) 02/19/17 12:00 02/26/17 11:59 02/22/17 11:20 Ondansetron HCl (Zofran) 4 mg Q6H PRN IVP Nausea & Vomiting 02/18/17 15:00 03/20/17 14:59 Polyethylene Glycol (Miralax) 17 gm HSPRN PRN ORAL Constipation 02/18/17 15:00 03/20/17 14:59 02/20/17 05:58 Quetiapine Fumarate (SEROquel) 12.5 mg Q6H PRN ORAL agitation 02/19/17 14:15 03/21/17 14:14 Tramadol HCl (Ultram) 50 mg Q4H PRN ORAL Moderate Pain (Pain Scale 4-6) 02/19/17 10:00 02/26/17 09:59 Zolpidem Tartrate (Ambien) 5 mg HSPRN PRN ORAL Insomnia 02/18/17 15:00 02/25/17 14:59 Allergies: Coded Allergies: No Known Allergies (Unverified , 02/18/17) ROS Limited/Unobtainable: No Constitutional: Reports: no symptoms HEENT: Reports: no symptoms Cardiovascular: Reports: no symptoms Respiratory: Reports: no symptoms Gastrointestinal/Abdominal: Reports: no symptoms Genitourinary: Reports: no symptoms Neurologic/Psychiatric: Reports: no symptoms Subjective 86 YO F admitted with fractured pubic ramus and Increased agitation. Cover for Int Med-Dr Carey. Await SNF placement Objective Last Vital Signs Date Time Temp Pulse Resp B/P (MAP) Pulse Ox O2 Delivery O2 Flow Rate FiO2 02/22/17 16:13 97.9 82 18 122/73 99 Room Air Laboratory Tests Test 02/22/17 05:25 White Blood Count 6.7 K/UL (4.8-10.8) Red Blood Count 3.12 M/UL (4.20-5.40) L Hemoglobin 11.0 G/DL (12.0-16.0) L Hematocrit 32.8 % (37.0-47.0) L Mean Corpuscular Volume 105 FL (80-99) H Mean Corpuscular Hemoglobin 35.3 PG (27.0-31.0) H Mean Corpuscular Hemoglobin Concent 33.6 G/DL (32.0-36.0) Red Cell Distribution Width 12.1 % (11.6-14.8) Platelet Count 330 K/UL (150-450) Mean Platelet Volume 5.1 FL (6.5-10.1) L Neutrophils (%) (Auto) 72.9 % (45.0-75.0) Lymphocytes (%) (Auto) 18.7 % (20.0-45.0) L Monocytes (%) (Auto) 6.6 % (1.0-10.0) Eosinophils (%) (Auto) 1.3 % (0.0-3.0) Basophils (%) (Auto) 0.6 % (0.0-2.0) Sodium Level 140 mEQ/L (135-145) Potassium Level 4.4 mEQ/L (3.4-4.9) Chloride Level 104 mEQ/L (98-107) Carbon Dioxide Level 28 mEQ/L (20-30) Anion Gap 8 (5-15) Blood Urea Nitrogen 14 mg/dL (7-23) Creatinine 0.6 mg/dL (0.5-0.9) Estimat Glomerular Filtration Rate mL/min (>60) Glucose Level 84 mg/dL (74-106) Calcium Level 8.7 mg/dL (8.6-10.2) Intake and Output 02/22/17 02/23/17 19:00 07:00 Intake Total 600 ml Balance 600 ml Intake Oral 600 ml # Voids 4 Objective General Appearance: WD/WN, mild distress, agitated EENT: PERRL/EOMI, normal ENT inspection Neck: non-tender, normal alignment, supple Cardiovascular: normal peripheral pulses, normal rate, regular rhythm, no gallop/murmur, no JVD Respiratory/Chest: chest wall non-tender, lungs clear, normal breath sounds, no respiratory distress, no accessory muscle use Abdomen: normal bowel sounds, non tender, soft, no organomegaly, no mass Extremities: normal range of motion Neurologic: transition assistant II-XII grossly normal, no motor/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 Cont seroquel. (2) HTN (hypertension) (3) Hypercholesteremia (4) Alzheimer's dementia (5) Depression Assessment & Plan: See psychiatry note. (6) Fracture of left superior pubic ramus Assessment & Plan: Weight bearing as tolerated per orhto. (7) Fracture of left inferior pubic ramus (8) Intractable pain Assessment & Plan: See pain management note. Cont IV morphine prn Status: stable Assessment/Plan Discharge planning: [facility] Feb 22, 2017 19:22
[2017-02-22 20:00] VITALS: BP 111/71
--- NOTE | 2017-02-22 22:40 | Pulmonology Progress Note ---
Assessment/Plan Problems: (1) Fracture of left superior pubic ramus (2) History of dementia (3) Depression (4) Agitation (5) HTN (hypertension) Assessment/Plan continue current care dc planning in process symptomatic treatment Subjective ROS Limited/Unobtainable: No Constitutional: Reports: no symptoms HEENT: Repors: no symptoms Respiratory: Reports: no symptoms Allergies: Coded Allergies: No Known Allergies (Unverified , 02/18/17) Objective Last 24 Hour Vital Signs Date Time Temp Pulse Resp B/P (MAP) Pulse Ox O2 Delivery O2 Flow Rate FiO2 02/22/17 20:00 97.7 76 18 111/71 99 Room Air 02/22/17 16:13 97.9 82 18 122/73 99 Room Air 02/22/17 11:52 96.4 72 18 134/74 98 Room Air 02/22/17 08:28 134/77 02/22/17 08:00 97.3 77 18 134/77 97 Room Air 02/22/17 04:00 97.8 79 18 142/75 97 Room Air 02/22/17 00:00 97.1 72 20 132/74 99 Room Air Intake and Output 02/22/17 02/23/17 19:00 07:00 Intake Total 600 ml Balance 600 ml Intake Oral 600 ml # Voids 4 General Appearance: WD/WN HEENT: normocephalic, atraumatic Respiratory/Chest: chest wall non-tender, lungs clear Cardiovascular: normal peripheral pulses Abdomen: normal bowel sounds, soft, non tender Genitourinary: normal external genitalia Extremities: no clubbing Neurologic/Psychiatric: xray tech II-XII grossly normal Laboratory Tests 02/22/17 05:25: White Blood Count 6.7, Red Blood Count 3.12L, Hemoglobin 11.0L, Hematocrit 32.8L , Mean Corpuscular Volume 105H, Mean Corpuscular Hemoglobin 35.3H, Mean Corpuscular Hemoglobin Concent 33.6, Red Cell Distribution Width 12.1, Platelet Count 330, Mean Platelet Volume 5.1L, Neutrophils (%) (Auto) 72.9, Lymphocytes ( %) (Auto) 18.7L, Monocytes (%) (Auto) 6.6, Eosinophils (%) (Auto) 1.3, Basophils (%) (Auto) 0.6, Sodium Level 140, Potassium Level 4.4, Chloride Level 104, Carbon Dioxide Level 28, Anion Gap 8, Blood Urea Nitrogen 14, Creatinine 0.6, Estimat Glomerular Filtration Rate , Glucose Level 84, Calcium Level 8.7 Current Medications Medications (Trade) Dose Ordered Sig/Gema Route PRN Reason Start Time Stop Time Status Last Admin Dose Admin Acetaminophen (Tylenol) 650 mg Q4H PRN ORAL fever 02/18/17 15:00 03/20/17 14:59 02/19/17 04:43 Al Hydroxide/Mg Hydroxide (Mylanta II) 30 ml Q6H PRN ORAL dyspepsia 02/18/17 15:00 03/20/17 14:59 Dextrose (Dextrose 50%) STAT PRN IV Hypoglycemia 02/18/17 15:00 03/20/17 14:59 Heparin Sodium (Porcine) (Heparin 5000 units/ml) 5,000 units EVERY 12 HOURS SUBQ 02/18/17 21:00 03/20/17 20:59 02/22/17 21:18 Lisinopril (Zestril) 10 mg DAILY ORAL 02/21/17 09:00 03/23/17 08:59 02/22/17 08:28 Lorazepam (Ativan 2mg/ml 1ml) 0.5 mg Q4H PRN IV For Anxiety 02/18/17 15:00 02/25/17 14:59 Morphine Sulfate (Morphine Sulfate) 2 mg Q4H PRN IVP Severe Pain (Pain Scale 7-10) 02/19/17 12:00 02/26/17 11:59 02/22/17 11:20 Ondansetron HCl (Zofran) 4 mg Q6H PRN IVP Nausea & Vomiting 02/18/17 15:00 03/20/17 14:59 Polyethylene Glycol (Miralax) 17 gm HSPRN PRN ORAL Constipation 02/18/17 15:00 03/20/17 14:59 02/20/17 05:58 Quetiapine Fumarate (SEROquel) 12.5 mg Q6H PRN ORAL agitation 02/19/17 14:15 03/21/17 14:14 Tramadol HCl (Ultram) 50 mg Q4H PRN ORAL Moderate Pain (Pain Scale 4-6) 02/19/17 10:00 02/26/17 09:59 Zolpidem Tartrate (Ambien) 5 mg HSPRN PRN ORAL Insomnia 02/18/17 15:00 02/25/17 14:59 YAHIR SWAN Feb 22, 2017 22:40
[2017-02-23] VITALS: BP 133/91
[2017-02-23 04:00] VITALS: BP 126/76
[2017-02-23 06:51] LABS: ANION GAP 8 (5-15); CARBON DIOXIDE 29 mEQ/L (20-30); CHLORIDE 104 mEQ/L (98-107); CREATININE 0.6 mg/dL (0.5-0.9); HEMOLYSIS 3; POTASSIUM 4.3 mEQ/L (3.4-4.9); SODIUM 141 mEQ/L (135-145)
[2017-02-23 06:58] LABS: BASOPHILS % (AUTO) 0.6 % (0.0-2.0); EOSINOPHILS % (AUTO) 1.1 % (0.0-3.0); LYMPHOCYTES % (AUTO) 18.3 % (20.0-45.0); MEAN CORPUSCULAR HEMOGLOBIN 35.4 PG (27.0-31.0); MEAN CORPUSCULAR HGB CONC 33.6 G/DL (32.0-36.0); MEAN CORPUSCULAR VOLUME 105 FL (80-99); MEAN PLATELET VOLUME 4.9 FL (6.5-10.1); PLATELET COUNT 345 K/UL (150-450); RED BLOOD COUNT 3.23 M/UL (4.20-5.40); RED CELL DISTRIBUTION WIDTH 12.1 % (11.6-14.8); WHITE BLOOD COUNT 6.8 K/UL (4.8-10.8)
[2017-02-23 08:06] VITALS: BP 132/76
--- NOTE | 2017-02-23 08:23 | General Progress Note ---
Assessment/Plan Assessment/Plan (1) Left hip pain (2) Left pubic rami fracture (3) Left ankle pain (4) Alzihmers disease Pt to be continued on Morphine and Tramadol as needed. D/w Dr. Ashley and he concurred. Subjective Date patient seen: Feb 23, 2017 Time patient seen: 07:15 - am Allergies: Coded Allergies: No Known Allergies (Unverified , 02/18/17) Subjective REVIEW OF SYSTEM: Complaining of left hip pain and left ankle pain. SUBJECTIVE: Pt is in bed no signs of pain or distress has requested the Morphine as needed for pain. Objective Last 24 Hour Vital Signs Date Time Temp Pulse Resp B/P (MAP) Pulse Ox O2 Delivery O2 Flow Rate FiO2 02/23/17 08:06 97.9 82 20 132/76 98 Room Air 02/23/17 04:00 98.1 80 18 126/76 100 Room Air 02/23/17 00:00 98.2 82 18 133/91 99 Room Air 02/22/17 20:00 97.7 76 18 111/71 99 Room Air 02/22/17 16:13 97.9 82 18 122/73 99 Room Air 02/22/17 11:52 96.4 72 18 134/74 98 Room Air 02/22/17 08:28 134/77 Intake and Output 02/23/17 02/24/17 19:00 07:00 Intake Total 360 ml Balance 360 ml Intake Oral 360 ml Laboratory Tests 02/23/17 04:50: White Blood Count 6.8, Red Blood Count 3.23L, Hemoglobin 11.4L, Hematocrit 34.0L , Mean Corpuscular Volume 105H, Mean Corpuscular Hemoglobin 35.4H, Mean Corpuscular Hemoglobin Concent 33.6, Red Cell Distribution Width 12.1, Platelet Count 345, Mean Platelet Volume 4.9L, Neutrophils (%) (Auto) 74.0, Lymphocytes ( %) (Auto) 18.3L, Monocytes (%) (Auto) 6.0, Eosinophils (%) (Auto) 1.1, Basophils (%) (Auto) 0.6, Sodium Level 141, Potassium Level 4.3, Chloride Level 104, Carbon Dioxide Level 29, Anion Gap 8, Blood Urea Nitrogen 15, Creatinine 0.6, Estimat Glomerular Filtration Rate , Glucose Level 95, Calcium Level 9.0 Height (Feet): 5 Height (Inches): 2.00 Weight (Pounds): 130 Objective PHYSICAL EXAMINATION: GENERAL: Alert and awake. HEENT: PERRLA. NECK: Range of motion is full in all directions. No tenderness to paracervical muscles. No adenopathy. LUNGS: Clear. HEART: S1 and S2 regular. ABDOMEN: Benign. BACK: Range of motion is decreased in flexion and extension. No tenderness to paraspinal muscles, trapezius or rhomboid muscles. EXTREMITIES: No cyanosis. No clubbing. Procedure: XRAY Ankle Compl Min 3v L Impression: No acute injury identified WILL PFEIFFER Feb 23, 2017 08:23
[2017-02-23] MEDS: Lisinopril 10mg tab ORAL SCH (09:04)
[2017-02-23] MEDS: Heparin 5000 units/ml inj SUBQ SCH ×2 (09:07→20:21)
[2017-02-23 11:54] VITALS: BP 146/77
--- NOTE | 2017-02-23 12:57 | General Progress Note ---
Assessment/Plan Status: stable, unchanged Assessment/Plan the pt lacks capacity to make decisions Subjective Constitutional: Reports: malaise, weakness Allergies: Coded Allergies: No Known Allergies (Unverified , 02/18/17) Subjective the pt is resting no acute distress Objective Last 24 Hour Vital Signs Date Time Temp Pulse Resp B/P (MAP) Pulse Ox O2 Delivery O2 Flow Rate FiO2 02/23/17 11:54 97.2 67 20 146/77 98 Room Air 02/23/17 09:04 132/76 02/23/17 08:06 97.9 82 20 132/76 98 Room Air 02/23/17 04:00 98.1 80 18 126/76 100 Room Air 02/23/17 00:00 98.2 82 18 133/91 99 Room Air 02/22/17 20:00 97.7 76 18 111/71 99 Room Air 02/22/17 16:13 97.9 82 18 122/73 99 Room Air Intake and Output 02/23/17 02/24/17 19:00 07:00 Intake Total 360 ml Balance 360 ml Intake Oral 360 ml Laboratory Tests 02/23/17 04:50: White Blood Count 6.8, Red Blood Count 3.23L, Hemoglobin 11.4L, Hematocrit 34.0L , Mean Corpuscular Volume 105H, Mean Corpuscular Hemoglobin 35.4H, Mean Corpuscular Hemoglobin Concent 33.6, Red Cell Distribution Width 12.1, Platelet Count 345, Mean Platelet Volume 4.9L, Neutrophils (%) (Auto) 74.0, Lymphocytes ( %) (Auto) 18.3L, Monocytes (%) (Auto) 6.0, Eosinophils (%) (Auto) 1.1, Basophils (%) (Auto) 0.6, Sodium Level 141, Potassium Level 4.3, Chloride Level 104, Carbon Dioxide Level 29, Anion Gap 8, Blood Urea Nitrogen 15, Creatinine 0.6, Estimat Glomerular Filtration Rate , Glucose Level 95, Calcium Level 9.0 Height (Feet): 5 Height (Inches): 2.00 Weight (Pounds): 130 General Appearance: no apparent distress, alert, confused, thin Neurologic: alert, responsive, disoriented, depressed affect Den Tran M.D. Feb 23, 2017 12:57
[2017-02-23] MEDS: Morphine Sulfate 2mg/ml Inj IVP PRN (13:42)
[2017-02-23] MEDS ORDERED: Hydrocortisone 2.5% Cream - 30gm TOPIC SCH (14:45)
[2017-02-23 15:59] VITALS: BP 138/82
--- NOTE | 2017-02-23 16:47 | Pulmonology Progress Note ---
Assessment/Plan Problems: (1) Fracture of left superior pubic ramus (2) History of dementia (3) Depression (4) Agitation (5) HTN (hypertension) Assessment/Plan continue current care dc planning in process symptomatic treatment consider comfort care and DNI and DNR Subjective ROS Limited/Unobtainable: No Constitutional: Reports: no symptoms HEENT: Repors: no symptoms Respiratory: Reports: no symptoms Allergies: Coded Allergies: No Known Allergies (Unverified , 02/18/17) Objective Last 24 Hour Vital Signs Date Time Temp Pulse Resp B/P (MAP) Pulse Ox O2 Delivery O2 Flow Rate FiO2 02/23/17 15:59 97.0 71 20 138/82 98 Room Air 02/23/17 11:54 97.2 67 20 146/77 98 Room Air 02/23/17 09:04 132/76 02/23/17 08:06 97.9 82 20 132/76 98 Room Air 02/23/17 04:00 98.1 80 18 126/76 100 Room Air 02/23/17 00:00 98.2 82 18 133/91 99 Room Air 02/22/17 20:00 97.7 76 18 111/71 99 Room Air Intake and Output 02/23/17 02/24/17 19:00 07:00 Intake Total 720 ml Balance 720 ml Intake Oral 720 ml General Appearance: WD/WN HEENT: normocephalic, atraumatic Respiratory/Chest: chest wall non-tender, lungs clear Cardiovascular: normal peripheral pulses, normal rate Abdomen: soft, non tender Skin: no lesions Neurologic/Psychiatric: supervisor packing II-XII grossly normal, alert Lymphatic: no neck adenopathy Laboratory Tests 02/23/17 04:50: White Blood Count 6.8, Red Blood Count 3.23L, Hemoglobin 11.4L, Hematocrit 34.0L , Mean Corpuscular Volume 105H, Mean Corpuscular Hemoglobin 35.4H, Mean Corpuscular Hemoglobin Concent 33.6, Red Cell Distribution Width 12.1, Platelet Count 345, Mean Platelet Volume 4.9L, Neutrophils (%) (Auto) 74.0, Lymphocytes ( %) (Auto) 18.3L, Monocytes (%) (Auto) 6.0, Eosinophils (%) (Auto) 1.1, Basophils (%) (Auto) 0.6, Sodium Level 141, Potassium Level 4.3, Chloride Level 104, Carbon Dioxide Level 29, Anion Gap 8, Blood Urea Nitrogen 15, Creatinine 0.6, Estimat Glomerular Filtration Rate , Glucose Level 95, Calcium Level 9.0 Current Medications Medications (Trade) Dose Ordered Sig/Gema Route PRN Reason Start Time Stop Time Status Last Admin Dose Admin Acetaminophen (Tylenol) 650 mg Q4H PRN ORAL fever 02/18/17 15:00 03/20/17 14:59 02/19/17 04:43 Al Hydroxide/Mg Hydroxide (Mylanta II) 30 ml Q6H PRN ORAL dyspepsia 02/18/17 15:00 03/20/17 14:59 Dextrose (Dextrose 50%) STAT PRN IV Hypoglycemia 02/18/17 15:00 03/20/17 14:59 Heparin Sodium (Porcine) (Heparin 5000 units/ml) 5,000 units EVERY 12 HOURS SUBQ 02/18/17 21:00 03/20/17 20:59 02/23/17 09:07 Hydrocortisone (Proctosol-HC Cream) 1 applic THREE TIMES A DAY TOPIC 02/23/17 18:00 03/25/17 17:59 Lisinopril (Zestril) 10 mg DAILY ORAL 02/21/17 09:00 03/23/17 08:59 02/23/17 09:04 Lorazepam (Ativan 2mg/ml 1ml) 0.5 mg Q4H PRN IV For Anxiety 02/18/17 15:00 02/25/17 14:59 Morphine Sulfate (Morphine Sulfate) 2 mg Q4H PRN IVP Severe Pain (Pain Scale 7-10) 02/19/17 12:00 02/26/17 11:59 02/23/17 13:42 Ondansetron HCl (Zofran) 4 mg Q6H PRN IVP Nausea & Vomiting 02/18/17 15:00 03/20/17 14:59 Polyethylene Glycol (Miralax) 17 gm HSPRN PRN ORAL Constipation 02/18/17 15:00 03/20/17 14:59 02/20/17 05:58 Quetiapine Fumarate (SEROquel) 12.5 mg Q6H PRN ORAL agitation 02/19/17 14:15 03/21/17 14:14 Tramadol HCl (Ultram) 50 mg Q4H PRN ORAL Moderate Pain (Pain Scale 4-6) 02/19/17 10:00 02/26/17 09:59 Zolpidem Tartrate (Ambien) 5 mg HSPRN PRN ORAL Insomnia 02/18/17 15:00 02/25/17 14:59 YAHIR SWAN Feb 23, 2017 16:47
[2017-02-23] MEDS: Hydrocortisone 2.5% Cream - 30gm TOPIC SCH (18:16)
--- NOTE | 2017-02-23 18:21 | Internal Med Progress Note ---
Subjective Date of Service: Feb 23, 2017 Physician Name Salvador Agee Attending Physician Bronson Carey MD Current Medications Medications (Trade) Dose Ordered Sig/Gema Route PRN Reason Start Time Stop Time Status Last Admin Dose Admin Acetaminophen (Tylenol) 650 mg Q4H PRN ORAL fever 02/18/17 15:00 03/20/17 14:59 02/19/17 04:43 Al Hydroxide/Mg Hydroxide (Mylanta II) 30 ml Q6H PRN ORAL dyspepsia 02/18/17 15:00 03/20/17 14:59 Dextrose (Dextrose 50%) STAT PRN IV Hypoglycemia 02/18/17 15:00 03/20/17 14:59 Heparin Sodium (Porcine) (Heparin 5000 units/ml) 5,000 units EVERY 12 HOURS SUBQ 02/18/17 21:00 03/20/17 20:59 02/23/17 09:07 Hydrocortisone (Proctosol-HC Cream) 1 applic THREE TIMES A DAY TOPIC 02/23/17 18:00 03/25/17 17:59 02/23/17 18:16 Lisinopril (Zestril) 10 mg DAILY ORAL 02/21/17 09:00 03/23/17 08:59 02/23/17 09:04 Lorazepam (Ativan 2mg/ml 1ml) 0.5 mg Q4H PRN IV For Anxiety 02/18/17 15:00 02/25/17 14:59 Morphine Sulfate (Morphine Sulfate) 2 mg Q4H PRN IVP Severe Pain (Pain Scale 7-10) 02/19/17 12:00 02/26/17 11:59 02/23/17 13:42 Ondansetron HCl (Zofran) 4 mg Q6H PRN IVP Nausea & Vomiting 02/18/17 15:00 03/20/17 14:59 Polyethylene Glycol (Miralax) 17 gm HSPRN PRN ORAL Constipation 02/18/17 15:00 03/20/17 14:59 02/20/17 05:58 Quetiapine Fumarate (SEROquel) 12.5 mg Q6H PRN ORAL agitation 02/19/17 14:15 03/21/17 14:14 Tramadol HCl (Ultram) 50 mg Q4H PRN ORAL Moderate Pain (Pain Scale 4-6) 02/19/17 10:00 02/26/17 09:59 Zolpidem Tartrate (Ambien) 5 mg HSPRN PRN ORAL Insomnia 02/18/17 15:00 02/25/17 14:59 Allergies: Coded Allergies: No Known Allergies (Unverified , 02/18/17) ROS Limited/Unobtainable: No Constitutional: Reports: no symptoms HEENT: Reports: no symptoms Cardiovascular: Reports: no symptoms Respiratory: Reports: no symptoms Gastrointestinal/Abdominal: Reports: no symptoms Genitourinary: Reports: no symptoms Neurologic/Psychiatric: Reports: no symptoms Subjective 86 YO F admitted with fractured pubic ramus and Increased agitation. Cover for Int Med-Dr Carey. Await SNF placement Objective Last Vital Signs Date Time Temp Pulse Resp B/P (MAP) Pulse Ox O2 Delivery O2 Flow Rate FiO2 02/23/17 15:59 97.0 71 20 138/82 98 Room Air Laboratory Tests Test 02/23/17 04:50 White Blood Count 6.8 K/UL (4.8-10.8) Red Blood Count 3.23 M/UL (4.20-5.40) L Hemoglobin 11.4 G/DL (12.0-16.0) L Hematocrit 34.0 % (37.0-47.0) L Mean Corpuscular Volume 105 FL (80-99) H Mean Corpuscular Hemoglobin 35.4 PG (27.0-31.0) H Mean Corpuscular Hemoglobin Concent 33.6 G/DL (32.0-36.0) Red Cell Distribution Width 12.1 % (11.6-14.8) Platelet Count 345 K/UL (150-450) Mean Platelet Volume 4.9 FL (6.5-10.1) L Neutrophils (%) (Auto) 74.0 % (45.0-75.0) Lymphocytes (%) (Auto) 18.3 % (20.0-45.0) L Monocytes (%) (Auto) 6.0 % (1.0-10.0) Eosinophils (%) (Auto) 1.1 % (0.0-3.0) Basophils (%) (Auto) 0.6 % (0.0-2.0) Sodium Level 141 mEQ/L (135-145) Potassium Level 4.3 mEQ/L (3.4-4.9) Chloride Level 104 mEQ/L (98-107) Carbon Dioxide Level 29 mEQ/L (20-30) Anion Gap 8 (5-15) Blood Urea Nitrogen 15 mg/dL (7-23) Creatinine 0.6 mg/dL (0.5-0.9) Estimat Glomerular Filtration Rate mL/min (>60) Glucose Level 95 mg/dL (74-106) Calcium Level 9.0 mg/dL (8.6-10.2) Intake and Output 02/23/17 02/24/17 19:00 07:00 Intake Total 720 ml Balance 720 ml Intake Oral 720 ml Objective General Appearance: WD/WN, mild distress, agitated EENT: PERRL/EOMI, normal ENT inspection Neck: non-tender, normal alignment, supple Cardiovascular: normal peripheral pulses, normal rate, regular rhythm, no gallop/murmur, no JVD Respiratory/Chest: chest wall non-tender, lungs clear, normal breath sounds, no respiratory distress, no accessory muscle use Abdomen: normal bowel sounds, non tender, soft, no organomegaly, no mass Extremities: normal range of motion Neurologic: supply person II-XII grossly normal, no motor/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 Cont seroquel. (2) HTN (hypertension) (3) Hypercholesteremia (4) Alzheimer's dementia (5) Depression Assessment & Plan: See psychiatry note. (6) Fracture of left superior pubic ramus Assessment & Plan: Weight bearing as tolerated per orhto. (7) Fracture of left inferior pubic ramus (8) Intractable pain Assessment & Plan: See pain management note. Cont IV morphine prn Status: stable Assessment/Plan Discharge planning: [facility] SALVADOR AGEE Feb 23, 2017 18:21
[2017-02-23 20:00] VITALS: BP 112/70
[2017-02-24] VITALS (7 sets, daily range): BP systolic 107–140; BP diastolic 65–77
[2017-02-24] MEDS: Morphine Sulfate 2mg/ml Inj IVP PRN (06:01)
[2017-02-24 06:39] LABS: BASOPHILS % (AUTO) 1.1 % (0.0-2.0); EOSINOPHILS % (AUTO) 1.2 % (0.0-3.0); LYMPHOCYTES % (AUTO) 16.9 % (20.0-45.0); MEAN CORPUSCULAR HEMOGLOBIN 35.1 PG (27.0-31.0); MEAN CORPUSCULAR HGB CONC 33.3 G/DL (32.0-36.0); MEAN CORPUSCULAR VOLUME 106 FL (80-99); MEAN PLATELET VOLUME 4.7 FL (6.5-10.1); NEUTROPHILS % (AUTO) 73.7 % (45.0-75.0); PLATELET COUNT 342 K/UL (150-450); RED BLOOD COUNT 3.14 M/UL (4.20-5.40); RED CELL DISTRIBUTION WIDTH 12.6 % (11.6-14.8); WHITE BLOOD COUNT 5.6 K/UL (4.8-10.8)
[2017-02-24 07:05] LABS: ANION GAP 9 (5-15); CALCIUM 8.6 mg/dL (8.6-10.2); CARBON DIOXIDE 29 mEQ/L (20-30); CHLORIDE 103 mEQ/L (98-107); CREATININE 0.6 mg/dL (0.5-0.9); HEMOLYSIS 4; SODIUM 141 mEQ/L (135-145)
--- NOTE | 2017-02-24 08:14 | General Progress Note ---
Assessment/Plan Assessment/Plan (1) Left hip pain (2) Left pubic rami fracture (3) Left ankle pain (4) Alzihmers disease Pt to be continued on Morphine and Tramadol as needed. D/w Dr. Ashley and he concurred. Subjective Date patient seen: Feb 24, 2017 Time patient seen: 07:45 - am Allergies: Coded Allergies: No Known Allergies (Unverified , 02/18/17) Subjective REVIEW OF SYSTEM: Complaining of left hip pain and left ankle pain. SUBJECTIVE: Patient is in bed no signs of pain or distress at this time. Continues to do PT and uses the medication as needed. Objective Last 24 Hour Vital Signs Date Time Temp Pulse Resp B/P (MAP) Pulse Ox O2 Delivery O2 Flow Rate FiO2 02/24/17 06:36 98.1 02/24/17 04:00 98.1 64 19 137/70 96 Room Air 02/24/17 00:00 97.6 71 19 140/77 100 Room Air 02/23/17 20:00 97.7 81 18 112/70 90 Room Air 02/23/17 15:59 97.0 71 20 138/82 98 Room Air 02/23/17 11:54 97.2 67 20 146/77 98 Room Air 02/23/17 09:04 132/76 Laboratory Tests 02/24/17 05:15: White Blood Count 5.6, Red Blood Count 3.14L, Hemoglobin 11.0L, Hematocrit 33.1L , Mean Corpuscular Volume 106H, Mean Corpuscular Hemoglobin 35.1H, Mean Corpuscular Hemoglobin Concent 33.3, Red Cell Distribution Width 12.6, Platelet Count 342, Mean Platelet Volume 4.7L, Neutrophils (%) (Auto) 73.7, Lymphocytes ( %) (Auto) 16.9L, Monocytes (%) (Auto) 7.0, Eosinophils (%) (Auto) 1.2, Basophils (%) (Auto) 1.1, Sodium Level 141, Potassium Level 4.0, Chloride Level 103, Carbon Dioxide Level 29, Anion Gap 9, Blood Urea Nitrogen 15, Creatinine 0.6, Estimat Glomerular Filtration Rate , Glucose Level 88, Calcium Level 8.6 Height (Feet): 5 Height (Inches): 2.00 Weight (Pounds): 130 Objective PHYSICAL EXAMINATION: GENERAL: Alert and awake. HEENT: PERRLA. NECK: Range of motion is full in all directions. No tenderness to paracervical muscles. No adenopathy. LUNGS: Clear. HEART: S1 and S2 regular. ABDOMEN: Benign. BACK: Range of motion is decreased in flexion and extension. No tenderness to paraspinal muscles, trapezius or rhomboid muscles. EXTREMITIES: No cyanosis. No clubbing. Procedure: XRAY Ankle Compl Min 3v L Impression: No acute injury identified WILL PFEIFFER Feb 24, 2017 08:14
[2017-02-24] MEDS: Lisinopril 10mg tab ORAL SCH ×2 (09:00→10:14)
[2017-02-24] MEDS: Hydrocortisone 2.5% Cream - 30gm TOPIC SCH ×3 (10:13→18:25)
[2017-02-24] MEDS: Heparin 5000 units/ml inj SUBQ SCH ×2 (10:15→20:22)
--- NOTE | 2017-02-24 18:19 | Pulmonology Progress Note ---
Assessment/Plan Problems: (1) Fracture of left superior pubic ramus (2) History of dementia (3) Depression (4) Agitation (5) HTN (hypertension) Assessment/Plan psych and pain management notes reviewed continue current care dc planning in process symptomatic treatment dc planning consider comfort care and DNI and DNR Subjective ROS Limited/Unobtainable: No Constitutional: Reports: no symptoms Respiratory: Reports: no symptoms Allergies: Coded Allergies: No Known Allergies (Unverified , 02/18/17) Objective Last 24 Hour Vital Signs Date Time Temp Pulse Resp B/P (MAP) Pulse Ox O2 Delivery O2 Flow Rate FiO2 02/24/17 16:00 98.1 71 18 107/70 98 Room Air 02/24/17 12:00 97.5 85 19 114/68 97 Room Air 02/24/17 08:00 98.1 76 18 107/65 98 Room Air 02/24/17 06:36 98.1 02/24/17 04:00 98.1 64 19 137/70 96 Room Air 02/24/17 00:00 97.6 71 19 140/77 100 Room Air 02/23/17 20:00 97.7 81 18 112/70 90 Room Air General Appearance: cachetic HEENT: normocephalic, atraumatic Respiratory/Chest: chest wall non-tender, lungs clear Cardiovascular: normal peripheral pulses, normal rate Abdomen: normal bowel sounds, soft, non tender Genitourinary: normal external genitalia Extremities: no clubbing Neurologic/Psychiatric: no motor/sensory deficits Laboratory Tests 02/24/17 05:15: White Blood Count 5.6, Red Blood Count 3.14L, Hemoglobin 11.0L, Hematocrit 33.1L , Mean Corpuscular Volume 106H, Mean Corpuscular Hemoglobin 35.1H, Mean Corpuscular Hemoglobin Concent 33.3, Red Cell Distribution Width 12.6, Platelet Count 342, Mean Platelet Volume 4.7L, Neutrophils (%) (Auto) 73.7, Lymphocytes ( %) (Auto) 16.9L, Monocytes (%) (Auto) 7.0, Eosinophils (%) (Auto) 1.2, Basophils (%) (Auto) 1.1, Sodium Level 141, Potassium Level 4.0, Chloride Level 103, Carbon Dioxide Level 29, Anion Gap 9, Blood Urea Nitrogen 15, Creatinine 0.6, Estimat Glomerular Filtration Rate , Glucose Level 88, Calcium Level 8.6 Current Medications Medications (Trade) Dose Ordered Sig/Gema Route PRN Reason Start Time Stop Time Status Last Admin Dose Admin Acetaminophen (Tylenol) 650 mg Q4H PRN ORAL fever 02/18/17 15:00 03/20/17 14:59 02/19/17 04:43 Al Hydroxide/Mg Hydroxide (Mylanta II) 30 ml Q6H PRN ORAL dyspepsia 02/18/17 15:00 03/20/17 14:59 Dextrose (Dextrose 50%) STAT PRN IV Hypoglycemia 02/18/17 15:00 03/20/17 14:59 Heparin Sodium (Porcine) (Heparin 5000 units/ml) 5,000 units EVERY 12 HOURS SUBQ 02/18/17 21:00 03/20/17 20:59 02/24/17 10:15 Hydrocortisone (Proctosol-HC Cream) 1 applic THREE TIMES A DAY TOPIC 02/23/17 18:00 03/25/17 17:59 02/24/17 13:29 Lisinopril (Zestril) 10 mg DAILY ORAL 02/21/17 09:00 03/23/17 08:59 02/23/17 09:04 Lorazepam (Ativan 2mg/ml 1ml) 0.5 mg Q4H PRN IV For Anxiety 02/18/17 15:00 02/25/17 14:59 Morphine Sulfate (Morphine Sulfate) 2 mg Q4H PRN IVP Severe Pain (Pain Scale 7-10) 02/19/17 12:00 02/26/17 11:59 02/24/17 06:01 Ondansetron HCl (Zofran) 4 mg Q6H PRN IVP Nausea & Vomiting 02/18/17 15:00 03/20/17 14:59 Polyethylene Glycol (Miralax) 17 gm HSPRN PRN ORAL Constipation 02/18/17 15:00 03/20/17 14:59 02/20/17 05:58 Quetiapine Fumarate (SEROquel) 12.5 mg Q6H PRN ORAL agitation 02/19/17 14:15 03/21/17 14:14 Tramadol HCl (Ultram) 50 mg Q4H PRN ORAL Moderate Pain (Pain Scale 4-6) 02/19/17 10:00 02/26/17 09:59 Zolpidem Tartrate (Ambien) 5 mg HSPRN PRN ORAL Insomnia 02/18/17 15:00 02/25/17 14:59 YAHIR SWAN Feb 24, 2017 18:19
--- NOTE | 2017-02-24 19:35 | Internal Med Progress Note ---
Subjective Date of Service: Feb 24, 2017 Physician Name Salvador Agee Attending Physician Bronson Carey MD Current Medications Medications (Trade) Dose Ordered Sig/Gema Route PRN Reason Start Time Stop Time Status Last Admin Dose Admin Acetaminophen (Tylenol) 650 mg Q4H PRN ORAL fever 02/18/17 15:00 03/20/17 14:59 02/19/17 04:43 Al Hydroxide/Mg Hydroxide (Mylanta II) 30 ml Q6H PRN ORAL dyspepsia 02/18/17 15:00 03/20/17 14:59 Dextrose (Dextrose 50%) STAT PRN IV Hypoglycemia 02/18/17 15:00 03/20/17 14:59 Heparin Sodium (Porcine) (Heparin 5000 units/ml) 5,000 units EVERY 12 HOURS SUBQ 02/18/17 21:00 03/20/17 20:59 02/24/17 10:15 Hydrocortisone (Proctosol-HC Cream) 1 applic THREE TIMES A DAY TOPIC 02/23/17 18:00 03/25/17 17:59 02/24/17 18:25 Lisinopril (Zestril) 10 mg DAILY ORAL 02/21/17 09:00 03/23/17 08:59 02/23/17 09:04 Lorazepam (Ativan 2mg/ml 1ml) 0.5 mg Q4H PRN IV For Anxiety 02/18/17 15:00 02/25/17 14:59 Morphine Sulfate (Morphine Sulfate) 2 mg Q4H PRN IVP Severe Pain (Pain Scale 7-10) 02/19/17 12:00 02/26/17 11:59 02/24/17 06:01 Ondansetron HCl (Zofran) 4 mg Q6H PRN IVP Nausea & Vomiting 02/18/17 15:00 03/20/17 14:59 Polyethylene Glycol (Miralax) 17 gm HSPRN PRN ORAL Constipation 02/18/17 15:00 03/20/17 14:59 02/20/17 05:58 Quetiapine Fumarate (SEROquel) 12.5 mg Q6H PRN ORAL agitation 02/19/17 14:15 03/21/17 14:14 Tramadol HCl (Ultram) 50 mg Q4H PRN ORAL Moderate Pain (Pain Scale 4-6) 02/19/17 10:00 02/26/17 09:59 Zolpidem Tartrate (Ambien) 5 mg HSPRN PRN ORAL Insomnia 02/18/17 15:00 02/25/17 14:59 Allergies: Coded Allergies: No Known Allergies (Unverified , 02/18/17) ROS Limited/Unobtainable: No Constitutional: Reports: no symptoms HEENT: Reports: no symptoms Cardiovascular: Reports: no symptoms Respiratory: Reports: no symptoms Gastrointestinal/Abdominal: Reports: no symptoms Genitourinary: Reports: no symptoms Neurologic/Psychiatric: Reports: no symptoms Subjective 86 YO F admitted with fractured pubic ramus and Increased agitation. Cover for Int Med-Dr Carey. Await SNF placement Objective Last Vital Signs Date Time Temp Pulse Resp B/P (MAP) Pulse Ox O2 Delivery O2 Flow Rate FiO2 02/24/17 16:00 98.1 71 18 107/70 98 Room Air Laboratory Tests Test 02/24/17 05:15 White Blood Count 5.6 K/UL (4.8-10.8) Red Blood Count 3.14 M/UL (4.20-5.40) L Hemoglobin 11.0 G/DL (12.0-16.0) L Hematocrit 33.1 % (37.0-47.0) L Mean Corpuscular Volume 106 FL (80-99) H Mean Corpuscular Hemoglobin 35.1 PG (27.0-31.0) H Mean Corpuscular Hemoglobin Concent 33.3 G/DL (32.0-36.0) Red Cell Distribution Width 12.6 % (11.6-14.8) Platelet Count 342 K/UL (150-450) Mean Platelet Volume 4.7 FL (6.5-10.1) L Neutrophils (%) (Auto) 73.7 % (45.0-75.0) Lymphocytes (%) (Auto) 16.9 % (20.0-45.0) L Monocytes (%) (Auto) 7.0 % (1.0-10.0) Eosinophils (%) (Auto) 1.2 % (0.0-3.0) Basophils (%) (Auto) 1.1 % (0.0-2.0) Sodium Level 141 mEQ/L (135-145) Potassium Level 4.0 mEQ/L (3.4-4.9) Chloride Level 103 mEQ/L (98-107) Carbon Dioxide Level 29 mEQ/L (20-30) Anion Gap 9 (5-15) Blood Urea Nitrogen 15 mg/dL (7-23) Creatinine 0.6 mg/dL (0.5-0.9) Estimat Glomerular Filtration Rate mL/min (>60) Glucose Level 88 mg/dL (74-106) Calcium Level 8.6 mg/dL (8.6-10.2) Objective General Appearance: WD/WN, mild distress, agitated EENT: PERRL/EOMI, normal ENT inspection Neck: non-tender, normal alignment, supple Cardiovascular: normal peripheral pulses, normal rate, regular rhythm, no gallop/murmur, no JVD Respiratory/Chest: chest wall non-tender, lungs clear, normal breath sounds, no respiratory distress, no accessory muscle use Abdomen: normal bowel sounds, non tender, soft, no organomegaly, no mass Extremities: normal range of motion 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 Cont seroquel. (2) HTN (hypertension) (3) Hypercholesteremia (4) Alzheimer's dementia (5) Depression Assessment & Plan: See psychiatry note. (6) Fracture of left superior pubic ramus Assessment & Plan: Weight bearing as tolerated per orhto. (7) Fracture of left inferior pubic ramus (8) Intractable pain Assessment & Plan: See pain management note. Cont IV morphine prn Assessment/Plan Discharge to SNF when bed available. SALVADOR AGEE Feb 24, 2017 19:35
[2017-02-25 04:07] VITALS: BP 143/72
[2017-02-25 07:51] LABS: ANION GAP 8 (5-15); CALCIUM 8.5 mg/dL (8.6-10.2); CARBON DIOXIDE 29 mEQ/L (20-30); CHLORIDE 104 mEQ/L (98-107); CREATININE 0.6 mg/dL (0.5-0.9); HEMOLYSIS 7; POTASSIUM 4.4 mEQ/L (3.4-4.9); SODIUM 141 mEQ/L (135-145)
[2017-02-25 07:53] LABS: BASOPHILS % (AUTO) 1.3 % (0.0-2.0); EOSINOPHILS % (AUTO) 0.8 % (0.0-3.0); LYMPHOCYTES % (AUTO) 17.1 % (20.0-45.0); MEAN CORPUSCULAR HEMOGLOBIN 34.7 PG (27.0-31.0); MEAN CORPUSCULAR HGB CONC 32.8 G/DL (32.0-36.0); MEAN CORPUSCULAR VOLUME 106 FL (80-99); MEAN PLATELET VOLUME 4.6 FL (6.5-10.1); MONOCYTES % (AUTO) 7.3 % (1.0-10.0); NEUTROPHILS % (AUTO) 73.5 % (45.0-75.0); PLATELET COUNT 365 K/UL (150-450); RED BLOOD COUNT 3.04 M/UL (4.20-5.40); RED CELL DISTRIBUTION WIDTH 12.2 % (11.6-14.8); WHITE BLOOD COUNT 5.8 K/UL (4.8-10.8)
[2017-02-25 08:15] VITALS: BP 112/66
--- NOTE | 2017-02-25 08:55 | General Progress Note ---
Assessment/Plan Assessment/Plan (1) Left hip pain (2) Left pubic rami fracture (3) Left ankle pain (4) Alzihmers disease Pt to be continued on Morphine and Tramadol as needed. D/w Dr. Ashley and he concurred. Subjective Date patient seen: Feb 25, 2017 Time patient seen: 08:30 - am Allergies: Coded Allergies: No Known Allergies (Unverified , 02/18/17) Subjective REVIEW OF SYSTEM: Complaining of left hip pain and left ankle pain. SUBJECTIVE: Patient is in bed has been doing PT and pain is tolerated on the medications. She shows no signs of pain or distress at this time. Objective Last 24 Hour Vital Signs Date Time Temp Pulse Resp B/P (MAP) Pulse Ox O2 Delivery O2 Flow Rate FiO2 02/25/17 08:15 98.2 83 20 112/66 96 Room Air 02/25/17 04:07 97.2 68 20 143/72 99 Room Air 02/24/17 23:54 97.2 71 20 125/77 97 Room Air 02/24/17 20:00 97.5 80 18 120/76 96 Room Air 02/24/17 16:00 98.1 71 18 107/70 98 Room Air 02/24/17 12:00 97.5 85 19 114/68 97 Room Air Laboratory Tests 02/25/17 05:20: White Blood Count 5.8, Red Blood Count 3.04L, Hemoglobin 10.6L, Hematocrit 32.2L , Mean Corpuscular Volume 106H, Mean Corpuscular Hemoglobin 34.7H, Mean Corpuscular Hemoglobin Concent 32.8, Red Cell Distribution Width 12.2, Platelet Count 365, Mean Platelet Volume 4.6L, Neutrophils (%) (Auto) 73.5, Lymphocytes ( %) (Auto) 17.1L, Monocytes (%) (Auto) 7.3, Eosinophils (%) (Auto) 0.8, Basophils (%) (Auto) 1.3, Sodium Level 141, Potassium Level 4.4, Chloride Level 104, Carbon Dioxide Level 29, Anion Gap 8, Blood Urea Nitrogen 18, Creatinine 0.6, Estimat Glomerular Filtration Rate , Glucose Level 106, Calcium Level 8.5L Height (Feet): 5 Height (Inches): 2.00 Weight (Pounds): 130 Objective PHYSICAL EXAMINATION: GENERAL: Alert and awake. HEENT: PERRLA. NECK: Range of motion is full in all directions. No tenderness to paracervical muscles. No adenopathy. LUNGS: Clear. HEART: S1 and S2 regular. ABDOMEN: Benign. BACK: Range of motion is decreased in flexion and extension. No tenderness to paraspinal muscles, trapezius or rhomboid muscles. EXTREMITIES: No cyanosis. No clubbing. Procedure: XRAY Ankle Compl Min 3v L Impression: No acute injury identified WILL PFEIFFER Feb 25, 2017 08:55
[2017-02-25] MEDS: Lisinopril 10mg tab ORAL SCH (09:00)
[2017-02-25] MEDS: Hydrocortisone 2.5% Cream - 30gm TOPIC SCH ×3 (09:09→17:30)
[2017-02-25] MEDS: Heparin 5000 units/ml inj SUBQ SCH ×2 (09:12→20:08)
[2017-02-25] MEDS ORDERED: traMADol 50mg tab ORAL PRN (10:00)
[2017-02-25 12:00] VITALS: BP 103/70
[2017-02-25] MEDS ORDERED: Morphine Sulfate 2mg/ml Inj IVP PRN (12:00)
[2017-02-25 16:00] VITALS: BP 120/72
--- NOTE | 2017-02-25 18:55 | Pulmonology Progress Note ---
Assessment/Plan Problems: (1) Fracture of left superior pubic ramus (2) History of dementia (3) Depression (4) Agitation (5) HTN (hypertension) Assessment/Plan psych and pain management notes reviewed continue current care dc planning in process symptomatic treatment dc planning son agreed with comfort care and DNI and DNR [facility] take her Subjective ROS Limited/Unobtainable: No Constitutional: Reports: no symptoms HEENT: Repors: no symptoms Respiratory: Reports: no symptoms Cardiovascular: Reports: no symptoms Gastrointestinal/Abdominal: Reports: no symptoms Genitourinary: Reports: no symptoms Allergies: Coded Allergies: No Known Allergies (Unverified , 02/18/17) Objective Last 24 Hour Vital Signs Date Time Temp Pulse Resp B/P (MAP) Pulse Ox O2 Delivery O2 Flow Rate FiO2 02/25/17 16:00 98.2 70 20 120/72 97 Room Air 02/25/17 12:00 98.4 79 18 103/70 98 Room Air 02/25/17 09:00 112/66 02/25/17 08:15 98.2 83 20 112/66 96 Room Air 02/25/17 04:07 97.2 68 20 143/72 99 Room Air 02/24/17 23:54 97.2 71 20 125/77 97 Room Air 02/24/17 20:00 97.5 80 18 120/76 96 Room Air Intake and Output 02/25/17 02/26/17 19:00 07:00 Intake Total 360 ml Balance 360 ml Intake Oral 360 ml # Voids 2 HEENT: normocephalic, atraumatic Respiratory/Chest: chest wall non-tender, lungs clear Cardiovascular: normal peripheral pulses, normal rate, regular rhythm, regularly irregular Genitourinary: normal external genitalia Skin: no lesions Neurologic/Psychiatric: no motor/sensory deficits Laboratory Tests 02/25/17 05:20: White Blood Count 5.8, Red Blood Count 3.04L, Hemoglobin 10.6L, Hematocrit 32.2L , Mean Corpuscular Volume 106H, Mean Corpuscular Hemoglobin 34.7H, Mean Corpuscular Hemoglobin Concent 32.8, Red Cell Distribution Width 12.2, Platelet Count 365, Mean Platelet Volume 4.6L, Neutrophils (%) (Auto) 73.5, Lymphocytes ( %) (Auto) 17.1L, Monocytes (%) (Auto) 7.3, Eosinophils (%) (Auto) 0.8, Basophils (%) (Auto) 1.3, Sodium Level 141, Potassium Level 4.4, Chloride Level 104, Carbon Dioxide Level 29, Anion Gap 8, Blood Urea Nitrogen 18, Creatinine 0.6, Estimat Glomerular Filtration Rate , Glucose Level 106, Calcium Level 8.5L Current Medications Medications (Trade) Dose Ordered Sig/Gema Route PRN Reason Start Time Stop Time Status Last Admin Dose Admin Acetaminophen (Tylenol) 650 mg Q4H PRN ORAL fever 02/18/17 15:00 03/20/17 14:59 02/19/17 04:43 Al Hydroxide/Mg Hydroxide (Mylanta II) 30 ml Q6H PRN ORAL dyspepsia 02/18/17 15:00 03/20/17 14:59 Dextrose (Dextrose 50%) STAT PRN IV Hypoglycemia 02/18/17 15:00 03/20/17 14:59 Heparin Sodium (Porcine) (Heparin 5000 units/ml) 5,000 units EVERY 12 HOURS SUBQ 02/18/17 21:00 03/20/17 20:59 02/25/17 09:12 Hydrocortisone (Proctosol-HC Cream) 1 applic THREE TIMES A DAY TOPIC 02/23/17 18:00 03/25/17 17:59 02/25/17 17:30 Lisinopril (Zestril) 10 mg DAILY ORAL 02/21/17 09:00 03/23/17 08:59 02/23/17 09:04 Morphine Sulfate (Morphine Sulfate) 2 mg Q4H PRN IVP Severe Pain (Pain Scale 7-10) 02/25/17 12:00 03/04/17 23:59 Ondansetron HCl (Zofran) 4 mg Q6H PRN IVP Nausea & Vomiting 02/18/17 15:00 03/20/17 14:59 Polyethylene Glycol (Miralax) 17 gm HSPRN PRN ORAL Constipation 02/18/17 15:00 03/20/17 14:59 02/20/17 05:58 Quetiapine Fumarate (SEROquel) 12.5 mg Q6H PRN ORAL agitation 02/19/17 14:15 03/21/17 14:14 Tramadol HCl (Ultram) 50 mg Q4H PRN ORAL Moderate Pain (Pain Scale 4-6) 02/25/17 10:00 03/04/17 23:59 YAHIR SWAN Feb 25, 2017 18:55
--- NOTE | 2017-02-25 18:58 | Internal Med Progress Note ---
Subjective Date of Service: Feb 25, 2017 Physician Name Karen Agee Attending Physician Bronson Carey MD Current Medications Medications (Trade) Dose Ordered Sig/Gema Route PRN Reason Start Time Stop Time Status Last Admin Dose Admin Acetaminophen (Tylenol) 650 mg Q4H PRN ORAL fever 02/18/17 15:00 03/20/17 14:59 02/19/17 04:43 Al Hydroxide/Mg Hydroxide (Mylanta II) 30 ml Q6H PRN ORAL dyspepsia 02/18/17 15:00 03/20/17 14:59 Dextrose (Dextrose 50%) STAT PRN IV Hypoglycemia 02/18/17 15:00 03/20/17 14:59 Heparin Sodium (Porcine) (Heparin 5000 units/ml) 5,000 units EVERY 12 HOURS SUBQ 02/18/17 21:00 03/20/17 20:59 02/25/17 09:12 Hydrocortisone (Proctosol-HC Cream) 1 applic THREE TIMES A DAY TOPIC 02/23/17 18:00 03/25/17 17:59 02/25/17 17:30 Lisinopril (Zestril) 10 mg DAILY ORAL 02/21/17 09:00 03/23/17 08:59 02/23/17 09:04 Morphine Sulfate (Morphine Sulfate) 2 mg Q4H PRN IVP Severe Pain (Pain Scale 7-10) 02/25/17 12:00 03/04/17 23:59 Ondansetron HCl (Zofran) 4 mg Q6H PRN IVP Nausea & Vomiting 02/18/17 15:00 03/20/17 14:59 Polyethylene Glycol (Miralax) 17 gm HSPRN PRN ORAL Constipation 02/18/17 15:00 03/20/17 14:59 02/20/17 05:58 Quetiapine Fumarate (SEROquel) 12.5 mg Q6H PRN ORAL agitation 02/19/17 14:15 03/21/17 14:14 Tramadol HCl (Ultram) 50 mg Q4H PRN ORAL Moderate Pain (Pain Scale 4-6) 02/25/17 10:00 03/04/17 23:59 Allergies: Coded Allergies: No Known Allergies (Unverified , 02/18/17) ROS Limited/Unobtainable: No Constitutional: Reports: no symptoms HEENT: Reports: no symptoms Cardiovascular: Reports: no symptoms Respiratory: Reports: no symptoms Gastrointestinal/Abdominal: Reports: no symptoms Genitourinary: Reports: no symptoms Neurologic/Psychiatric: Reports: no symptoms Subjective 86 YO F admitted with fractured pubic ramus and Increased agitation. Cover for Int Sergio-Dr Carey. Await SNF placement Objective Last Vital Signs Date Time Temp Pulse Resp B/P (MAP) Pulse Ox O2 Delivery O2 Flow Rate FiO2 02/25/17 16:00 98.2 70 20 120/72 97 Room Air Laboratory Tests Test 02/25/17 05:20 White Blood Count 5.8 K/UL (4.8-10.8) Red Blood Count 3.04 M/UL (4.20-5.40) L Hemoglobin 10.6 G/DL (12.0-16.0) L Hematocrit 32.2 % (37.0-47.0) L Mean Corpuscular Volume 106 FL (80-99) H Mean Corpuscular Hemoglobin 34.7 PG (27.0-31.0) H Mean Corpuscular Hemoglobin Concent 32.8 G/DL (32.0-36.0) Red Cell Distribution Width 12.2 % (11.6-14.8) Platelet Count 365 K/UL (150-450) Mean Platelet Volume 4.6 FL (6.5-10.1) L Neutrophils (%) (Auto) 73.5 % (45.0-75.0) Lymphocytes (%) (Auto) 17.1 % (20.0-45.0) L Monocytes (%) (Auto) 7.3 % (1.0-10.0) Eosinophils (%) (Auto) 0.8 % (0.0-3.0) Basophils (%) (Auto) 1.3 % (0.0-2.0) Sodium Level 141 mEQ/L (135-145) Potassium Level 4.4 mEQ/L (3.4-4.9) Chloride Level 104 mEQ/L (98-107) Carbon Dioxide Level 29 mEQ/L (20-30) Anion Gap 8 (5-15) Blood Urea Nitrogen 18 mg/dL (7-23) Creatinine 0.6 mg/dL (0.5-0.9) Estimat Glomerular Filtration Rate mL/min (>60) Glucose Level 106 mg/dL (74-106) Calcium Level 8.5 mg/dL (8.6-10.2) L Intake and Output 02/25/17 02/26/17 19:00 07:00 Intake Total 360 ml Balance 360 ml Intake Oral 360 ml # Voids 2 Objective General Appearance: WD/WN, mild distress, agitated EENT: PERRL/EOMI, normal ENT inspection Neck: non-tender, normal alignment, supple Cardiovascular: normal peripheral pulses, normal rate, regular rhythm, no gallop/murmur, no JVD Respiratory/Chest: chest wall non-tender, lungs clear, normal breath sounds, no respiratory distress, no accessory muscle use Abdomen: normal bowel sounds, non tender, soft, no organomegaly, no mass Extremities: normal range of motion 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 Cont seroquel. (2) HTN (hypertension) (3) Hypercholesteremia (4) Alzheimer's dementia (5) Depression Assessment & Plan: See psychiatry note. (6) Fracture of left superior pubic ramus Assessment & Plan: Weight bearing as tolerated per orhto. (7) Fracture of left inferior pubic ramus (8) Intractable pain Assessment & Plan: See pain management note. Cont IV morphine prn Assessment/Plan Discharge to SNF when bed available. KAREN AGEE Feb 25, 2017 18:58
[2017-02-25 20:00] VITALS: BP 118/70
--- NOTE | 2017-02-25 23:58 | General Progress Note ---
Assessment/Plan Status: stable Assessment/Plan the pt lacks capacity to make decisions Subjective Constitutional: Reports: malaise, weakness Allergies: Coded Allergies: No Known Allergies (Unverified , 02/18/17) Subjective the pt is resting no acute distress Objective Last 24 Hour Vital Signs Date Time Temp Pulse Resp B/P (MAP) Pulse Ox O2 Delivery O2 Flow Rate FiO2 02/25/17 20:00 98.1 75 20 118/70 98 Room Air 02/25/17 16:00 98.2 70 20 120/72 97 Room Air 02/25/17 12:00 98.4 79 18 103/70 98 Room Air 02/25/17 09:00 112/66 02/25/17 08:15 98.2 83 20 112/66 96 Room Air 02/25/17 04:07 97.2 68 20 143/72 99 Room Air Intake and Output 02/25/17 02/26/17 19:00 07:00 Intake Total 360 ml Balance 360 ml Intake Oral 360 ml # Voids 2 Laboratory Tests 02/25/17 05:20: White Blood Count 5.8, Red Blood Count 3.04L, Hemoglobin 10.6L, Hematocrit 32.2L , Mean Corpuscular Volume 106H, Mean Corpuscular Hemoglobin 34.7H, Mean Corpuscular Hemoglobin Concent 32.8, Red Cell Distribution Width 12.2, Platelet Count 365, Mean Platelet Volume 4.6L, Neutrophils (%) (Auto) 73.5, Lymphocytes ( %) (Auto) 17.1L, Monocytes (%) (Auto) 7.3, Eosinophils (%) (Auto) 0.8, Basophils (%) (Auto) 1.3, Sodium Level 141, Potassium Level 4.4, Chloride Level 104, Carbon Dioxide Level 29, Anion Gap 8, Blood Urea Nitrogen 18, Creatinine 0.6, Estimat Glomerular Filtration Rate , Glucose Level 106, Calcium Level 8.5L Height (Feet): 5 Height (Inches): 2.00 Weight (Pounds): 130 General Appearance: alert, confused, thin Neurologic: alert, responsive, disoriented, depressed affect Den Tran M.D. Feb 25, 2017 23:58
[2017-02-26] VITALS: BP 137/80
[2017-02-26 04:00] VITALS: BP 127/79
[2017-02-26 06:57] LABS: EOSINOPHILS % (AUTO) 1.2 % (0.0-3.0); LYMPHOCYTES % (AUTO) 22.2 % (20.0-45.0); MEAN CORPUSCULAR VOLUME 106 FL (80-99); MEAN PLATELET VOLUME 4.6 FL (6.5-10.1); MONOCYTES % (AUTO) 7.4 % (1.0-10.0); NEUTROPHILS % (AUTO) 68.2 % (45.0-75.0); PLATELET COUNT 367 K/UL (150-450); RED BLOOD COUNT 3.09 M/UL (4.20-5.40); RED CELL DISTRIBUTION WIDTH 12.6 % (11.6-14.8); WHITE BLOOD COUNT 5.2 K/UL (4.8-10.8)
[2017-02-26 06:59] LABS: ANION GAP 8 (5-15); CALCIUM 8.6 mg/dL (8.6-10.2); CARBON DIOXIDE 29 mEQ/L (20-30); CHLORIDE 106 mEQ/L (98-107); CREATININE 0.6 mg/dL (0.5-0.9); HEMOLYSIS 3; POTASSIUM 4.4 mEQ/L (3.4-4.9); SODIUM 143 mEQ/L (135-145)
[2017-02-26 08:00] VITALS: BP 110/70
--- NOTE | 2017-02-26 08:58 | General Progress Note ---
Assessment/Plan Assessment/Plan (1) Left hip pain (2) Left pubic rami fracture (3) Left ankle pain (4) Alzihmers disease Pt to be continued on Morphine and Tramadol as needed. D/w Dr. Ashley and he concurred. Subjective Date patient seen: Feb 26, 2017 Time patient seen: 08:30 - am Allergies: Coded Allergies: No Known Allergies (Unverified , 02/18/17) Subjective REVIEW OF SYSTEM: Complaining of left hip pain and left ankle pain. SUBJECTIVE: She is in bed no signs of pain or distress at this time. Objective Last 24 Hour Vital Signs Date Time Temp Pulse Resp B/P (MAP) Pulse Ox O2 Delivery O2 Flow Rate FiO2 02/26/17 04:00 97.8 72 20 127/79 97 Room Air 02/26/17 00:00 97.7 70 20 137/80 98 Room Air 02/25/17 20:00 98.1 75 20 118/70 98 Room Air 02/25/17 16:00 98.2 70 20 120/72 97 Room Air 02/25/17 12:00 98.4 79 18 103/70 98 Room Air 02/25/17 09:00 112/66 Laboratory Tests 02/26/17 05:25: White Blood Count 5.2, Red Blood Count 3.09L, Hemoglobin 11.1L, Hematocrit 32.7L , Mean Corpuscular Volume 106H, Mean Corpuscular Hemoglobin 36.0H, Mean Corpuscular Hemoglobin Concent 34.0, Red Cell Distribution Width 12.6, Platelet Count 367, Mean Platelet Volume 4.6L, Neutrophils (%) (Auto) 68.2, Lymphocytes ( %) (Auto) 22.2, Monocytes (%) (Auto) 7.4, Eosinophils (%) (Auto) 1.2, Basophils (%) (Auto) 1.0, Sodium Level 143, Potassium Level 4.4, Chloride Level 106, Carbon Dioxide Level 29, Anion Gap 8, Blood Urea Nitrogen 17, Creatinine 0.6, Estimat Glomerular Filtration Rate , Glucose Level 97, Calcium Level 8.6 Height (Feet): 5 Height (Inches): 2.00 Weight (Pounds): 130 Objective PHYSICAL EXAMINATION: GENERAL: Alert and awake. HEENT: PERRLA. NECK: Range of motion is full in all directions. No tenderness to paracervical muscles. No adenopathy. LUNGS: Clear. HEART: S1 and S2 regular. ABDOMEN: Benign. BACK: Range of motion is decreased in flexion and extension. No tenderness to paraspinal muscles, trapezius or rhomboid muscles. EXTREMITIES: No cyanosis. No clubbing. Procedure: XRAY Ankle Compl Min 3v L Impression: No acute injury identified WILL PFEIFFER Feb 26, 2017 08:58
[2017-02-26] MEDS: Hydrocortisone 2.5% Cream - 30gm TOPIC SCH ×2 (09:57→14:19)
[2017-02-26] MEDS: Heparin 5000 units/ml inj SUBQ SCH (10:05)
--- NOTE | 2017-02-26 10:17 | General Progress Note ---
Assessment/Plan Status: stable, progressing Assessment/Plan the pt lacks capacity to make decisions Subjective Neurologic/Psychiatric: Reports: anxiety, depressed Allergies: Coded Allergies: No Known Allergies (Unverified , 02/18/17) Subjective the pt is resting no acute distress Objective Last 24 Hour Vital Signs Date Time Temp Pulse Resp B/P (MAP) Pulse Ox O2 Delivery O2 Flow Rate FiO2 02/26/17 04:00 97.8 72 20 127/79 97 Room Air 02/26/17 00:00 97.7 70 20 137/80 98 Room Air 02/25/17 20:00 98.1 75 20 118/70 98 Room Air 02/25/17 16:00 98.2 70 20 120/72 97 Room Air 02/25/17 12:00 98.4 79 18 103/70 98 Room Air Laboratory Tests 02/26/17 05:25: White Blood Count 5.2, Red Blood Count 3.09L, Hemoglobin 11.1L, Hematocrit 32.7L , Mean Corpuscular Volume 106H, Mean Corpuscular Hemoglobin 36.0H, Mean Corpuscular Hemoglobin Concent 34.0, Red Cell Distribution Width 12.6, Platelet Count 367, Mean Platelet Volume 4.6L, Neutrophils (%) (Auto) 68.2, Lymphocytes ( %) (Auto) 22.2, Monocytes (%) (Auto) 7.4, Eosinophils (%) (Auto) 1.2, Basophils (%) (Auto) 1.0, Sodium Level 143, Potassium Level 4.4, Chloride Level 106, Carbon Dioxide Level 29, Anion Gap 8, Blood Urea Nitrogen 17, Creatinine 0.6, Estimat Glomerular Filtration Rate , Glucose Level 97, Calcium Level 8.6 Height (Feet): 5 Height (Inches): 2.00 Weight (Pounds): 130 General Appearance: no apparent distress, alert Neurologic: alert, disoriented, depressed affect Den Tran M.D. Feb 26, 2017 10:17
[2017-02-26 11:59] VITALS: BP 128/74
[2017-02-26 12:03] VITALS: BP 128/74
[2017-02-26] MEDS: Lisinopril 10mg tab ORAL SCH (12:03)
[2017-02-26] MEDS ORDERED: LISINOPRIL10 MG ORAL (12:07)
[2017-02-26] MEDS ORDERED: SEROQUEL25 MG ORAL (12:07)
[2017-02-26] MEDS ORDERED: NS 275ml ONE (15:14)
--- NOTE | 2017-02-26 16:57 | Discharge Summary ---
Discharge Summary Hospital Course Date of Admission Feb 18, 2017 at 14:35 Date of Discharge Feb 26, 2017 at 15:15 Admitting Diagnosis intractable pain, advanced dementia HPI Leonela Gould is a 86 year old female who was admitted on Feb 18, 2017 at 14:35 for Intractable Pain, Advanced Dementia Hospital Course The patient was seen and examined at bedside. Last 24 Hour Vital Signs Date Time Temp Pulse Resp B/P (MAP) Pulse Ox O2 Delivery O2 Flow Rate FiO2 02/26/17 12:03 128/74 02/26/17 11:59 98.1 69 18 128/74 98 Room Air 02/26/17 08:00 97.7 77 18 110/70 99 Room Air 02/26/17 04:00 97.8 72 20 127/79 97 Room Air 02/26/17 00:00 97.7 70 20 137/80 98 Room Air 02/25/17 20:00 98.1 75 20 118/70 98 Room Air General: No acute distress, awake and alert HEENT: NCAT, sclera anicteric, PERRL, EOMI. Neck: Supple, no significant jugular venous distention, Lungs: clear to auscultation bilaterally, no Wheeze or Rales. Heart: Regular rate and rhythm, normal S1/S2, no murmurs/ Abdomen: soft, nontender, nondistended. Normoactive bowel sounds. Extremities: No Cyanosis , clubbing or edema. Neuro: Able to move all extremities (Patient was seen earlier today. Signature timestamp does not reflect patient encounter time) Bronson Carey MD Discharge Discharge Disposition Patient was discharged to Discharge Diagnoses: Bronson Carey MD Feb 26, 2017 16:57
--- NOTE | 2017-02-26 18:16 | Pulmonology Progress Note ---
Assessment/Plan Problems: (1) Fracture of left superior pubic ramus (2) History of dementia (3) Depression (4) Agitation (5) HTN (hypertension) Assessment/Plan psych and pain management notes reviewed continue current care dc planning in process symptomatic treatment dc planning son agreed with comfort care and DNI and DNR dc planning in process Subjective ROS Limited/Unobtainable: No Constitutional: Reports: no symptoms HEENT: Repors: no symptoms Respiratory: Reports: no symptoms Allergies: Coded Allergies: No Known Allergies (Unverified , 02/18/17) Objective Last 24 Hour Vital Signs Date Time Temp Pulse Resp B/P (MAP) Pulse Ox O2 Delivery O2 Flow Rate FiO2 02/26/17 12:03 128/74 02/26/17 11:59 98.1 69 18 128/74 98 Room Air 02/26/17 08:00 97.7 77 18 110/70 99 Room Air 02/26/17 04:00 97.8 72 20 127/79 97 Room Air 02/26/17 00:00 97.7 70 20 137/80 98 Room Air 02/25/17 20:00 98.1 75 20 118/70 98 Room Air General Appearance: WD/WN HEENT: normocephalic, atraumatic Respiratory/Chest: chest wall non-tender, lungs clear Breasts: no masses Cardiovascular: normal peripheral pulses Extremities: no cyanosis, no clubbing Neurologic/Psychiatric: no motor/sensory deficits Laboratory Tests 02/26/17 05:25: White Blood Count 5.2, Red Blood Count 3.09L, Hemoglobin 11.1L, Hematocrit 32.7L , Mean Corpuscular Volume 106H, Mean Corpuscular Hemoglobin 36.0H, Mean Corpuscular Hemoglobin Concent 34.0, Red Cell Distribution Width 12.6, Platelet Count 367, Mean Platelet Volume 4.6L, Neutrophils (%) (Auto) 68.2, Lymphocytes ( %) (Auto) 22.2, Monocytes (%) (Auto) 7.4, Eosinophils (%) (Auto) 1.2, Basophils (%) (Auto) 1.0, Sodium Level 143, Potassium Level 4.4, Chloride Level 106, Carbon Dioxide Level 29, Anion Gap 8, Blood Urea Nitrogen 17, Creatinine 0.6, Estimat Glomerular Filtration Rate , Glucose Level 97, Calcium Level 8.6 YAHIR SWAN Feb 26, 2017 18:16
--- NOTE | 2017-02-27 18:30 | Discharge Summary ---
DATE OF ADMISSION: 02/18/2017 DATE OF DISCHARGE: 02/26/2017 Hospital Course: This is an 86-year-old female with past medical history significant for hypertension, dyslipidemia, Alzheimer dementia, and depression, who had presented to hospital after she was noted to have increased agitation and confusion. Shortly after initial evaluation, the patient was admitted to the hospital with increased agitation and confusion with fracture of the left superior as well as inferior pelvic ramus. Throughout the hospital course, the patient was followed by Dr. Den Tran from psychiatry, Dr. Ashley from pain management, Dr. Goldman from pulmonary/critical care, and Dr. Rao from orthopedics. Throughout the hospital course, the patient's status gradually improved, became more comfortable, and subsequently after discussion with her son, the patient became comfort care, DNR/DNI and was discharged to the nursing facility to be followed over there for possible hospice. FINAL DIAGNOSES: 1. Fracture of the left superior pubic ramus. 2. Alzheimer dementia. 3. Depression. 4. Agitation. 5. Hypertension. MEDICATION ON DISCHARGE: Continue discharge medication list. ACTIVITY: As tolerated. DIET: Cardiac diet. Disposition: The patient will be transferred to the nursing facility via ambulance. Bronson Carey M.D. DR: THELMA JOB#: [id number] CC:
== END 2017-02-26 15:15 | DRG 341 ==
LOC: EDBD 11:32 → EMR 13:05 → 4W 14:35 → EDBEDREQ 16:13
DX: S32.512A Fracture of superior rim of left pubis, initial encounter for closed fracture (principal); G93.40 Encephalopathy, unspecified; G30.9 Alzheimer's disease, unspecified; F02.80 Dementia in other diseases classified elsewhere, unspecified severity, without behavioral disturbance, psychotic disturbance, mood disturbance, and anxiety; I10 Essential (primary) hypertension; S32.592A Other specified fracture of left pubis, initial encounter for closed fracture; W19.XXXA Unspecified fall, initial encounter; E78.00 Pure hypercholesterolemia, unspecified; F32.9 Major depressive disorder, single episode, unspecified; M25.572 Pain in left ankle and joints of left foot; M25.552 Pain in left hip; R45.1 Restlessness and agitation; Z66 Do not resuscitate; Z51.5 Encounter for palliative care
CPT/HCPCS: 36415; 70450; 70486; 72192; 80048; 80053; 80300; 80329; 81003; 84443; 85007; 85025; 90471; 90715; 99285